=== PATIENT | female | born 1960 | race Caucasian/White ===

== ENCOUNTER 2016-12-31 15:37 | Emergency (ER) | payer OTHER ==
[2016-12-31] MEDS ORDERED: DUONEB 0.5-3 MG/3 ml Neb IH ONE ×2 (15:47→16:13)
[2016-12-31] MEDS ORDERED: ROCEPHIN 1 Gm-D5w 50 ml Bag** 1 G/50 ML IVPB IV STA (15:47)
[2016-12-31] MEDS ORDERED: ROCEPHIN 1 Gm-D5w 50 ml Bag** 1 G/50 ML IVPB IV ONE (15:59)
[2016-12-31] MEDS ORDERED: Sodium Chloride 0.9% 1000 ML 1,000 ML ONE (15:59)
[2016-12-31] MEDS ORDERED: Sodium Chloride 0.9% 1000 ML 1,000 ML IV SCH (16:00)
--- NOTE | 2016-12-31 16:08 | ERPHSYRPT ---
- History of Present Illness Time Seen by Provider: 12/31/16 15:39 Source: patient, family (daughter) Exam Limitations: no limitations Patient Subjective Stated Complaint: Pt states "I do not feel well and have not for the past two days." Triage Nursing Assessment: Pt alert and oriented X 3, skin pwd. pt ambulates without difficulty, able to speak in full sentences, voice is soft and scratchy. Physician History: not feeling well for two days; started as cold symptoms; sore throat; cough thick green; fever and chills to 101.2; N&V with coughing paroxysms only; chest discomfort with coughing as well; no travel no exposures; good appetite Timing/Duration: today (worse), yesterday (onset; ), gradual onset, worse Cough Quality/Degree: moderate, productive cough (green), sputum (green) Possible Cause: occasional episodes Modifying Factors: Improves With: coughing, exertion Associated Symptoms: fever, chills, chest pain/soreness, cough, sore throat International travel in last 2 weeks: No Allergies/Adverse Reactions: No Known Drug Allergies Allergy (Verified 12/31/16 15:51) Home Medications: Metoprolol Succinate 50 mg PO DAILY 09/22/14 [History] Simvastatin 20 mg PO DAILY 09/22/14 [History] Nitroglycerin 0.4 mg Tablet [Nitrostat 0.4 MG Tablet] 0.4 mg SL Q5MIN PRN MR X 3 PRN 09/03/15 [History] Hx Tetanus, Diphtheria Vaccination/Date Given: No Hx Influenza Vaccination/Date Given: No Hx Pneumococcal Vaccination/Date Given: No Immunizations Up to Date: Yes - Review of Systems Constitutional: Fever, Chills, Malaise Eyes: No Symptoms Ears, Nose, & Throat: Throat Pain, No Ear Pain, No Tinnitus, No Nose Congestion , No Epistaxis Respiratory: Cough, Dyspnea on Exertion (TRIVEDI), No Cyanosis, No Wheezing Cardiac: Chest Pain, Palpitations, No Syncope, No Orthopnea Abdominal/Gastrointestinal: Nausea, Vomiting (with coughing), No Abdominal Pain , No Diarrhea Genitourinary Symptoms: No Symptoms Musculoskeletal: Arthralgias, Myalgias, No Fall, No Injury Skin: No Symptoms Neurological: No Symptoms Psychological: No Symptoms Endocrine: No Symptoms Hematologic/Lymphatic: No Symptoms Immunological/Allergic: No Symptoms - Past Medical History Pertinent Past Medical History: Yes Neurological History: No Pertinent History ENT History: No Pertinent History Cardiac History: High Cholesterol, Hypertension Respiratory History: No Pertinent History Endocrine Medical History: Hypothyroidism Musculoskeletal History: Osteoarthritis GI Medical History: GERD History: No Pertinent History Psycho-Social History: No Pertinent History Female Reproductive Disorders: Cervical Cancer Other Medical History: insufficient heart valves - Past Surgical History Past Surgical History: Yes Neuro Surgical History: No Pertinent History Cardiac: Cardiac Catheterization Respiratory: No Pertinent History, Other Gastrointestinal: No Pertinent History Musculoskeletal: Orthopedic Surgery Female Surgical History: Hysterectomy, Tubal Ligation Other Surgical History: bilat bone surgery on both feet "bone spurs" - Social History Smoking Status: Never smoker Exposure to second hand smoke: Yes Alcohol Use: None Drug Use: none Patient Lives Alone: No Significant Family History: heart disease, hypertension - Female History Hx Last Menstrual Period: hystectomy Hx Now: No - Nursing Vital Signs Nursing Vital Signs: Initial Vital Signs Temperature 97.8 F 12/31/16 15:41 Pulse Rate 107 H 12/31/16 15:41 Respiratory Rate 20 12/31/16 15:41 Blood Pressure 137/70 12/31/16 15:41 O2 Sat by Pulse Oximetry 94 L 12/31/16 15:41 Pain Scale Pain Intensity 0 - Physical Exam General Appearance: moderate distress, alert, anxiety, obese Eye Exam: PERRL/EOMI, eyes nml inspection, No photophobia Ears, Nose, Throat Exam: normal ENT inspection, TMs normal, moist mucous membranes, pharyngeal erythema, No tonsillar exudate Neck Exam: normal inspection, non-tender, supple, full range of motion, No meningismus, No carotid bruit, No JVD Respiratory Exam: normal breath sounds (on left), lungs clear (on left), airway intact, diminished breath sounds (right ), rhonchi (right base), wheezing (end expiratory right), No chest tenderness, No respiratory distress, No pleural rub Cardiovascular Exam: regular rate/rhythm, normal heart sounds, normal peripheral pulses, capillary refill 2-3 sec, No murmur, No edema Gastrointestinal/Abdomen Exam: soft, normal bowel sounds, No tenderness, No guarding, No rebound, No organomegaly Pelvic Exam: deferred Rectal Exam: deferred Back Exam: normal inspection, normal range of motion, No CVA tenderness, No vertebral tenderness, No rash Extremity Exam: normal inspection, normal range of motion, No divine's sign, No pedal edema Neurologic Exam: alert, oriented x 3, cooperative, behavioral assistant II-XII nml as tested, normal mood/affect, nml cerebellar function, nml station & gait Skin Exam: normal color, warm, dry, No cyanosis Lymphatic Exam: No adenopathy SpO2 Interpretation: normal SpO2: 97 Oxygen Delivery: Room Air - Course Nursing assessment & vital signs reviewed: Yes EKG Interpreted by Me: RATE (91), Sinus Rhythm, Left Bennett Deviation, NORMAL INTERVALS, NORMAL QRS, Non-specific ST Changes (flattening of T wave and poor R wave progression V1- V5) Rhythm Strip: Rate (92), Normal Sinus Rhythm - Radiology Exams Chest X-ray Interpretation: Interpreted by me, No Pneumonia, No Pneumothorax, Nml Heart Size, Other (poor inspiration; ? density left base; some increased interstitial markings right base) Ordered Tests: Active Orders 24 hr Category Date Time Status Stockholder STAT Care 12/31/16 15:47 Active EKG-ER Only STAT Care 12/31/16 15:47 Active IV Insertion STAT Care 12/31/16 15:47 Active Pulse Oximetry (ED) STAT Care 12/31/16 15:47 Active CHEST 1 VIEW (PORTABLE) Stat Exams 12/31/16 15:47 Taken BLOOD CULTURE Stat Lab 12/31/16 15:45 Received CBC W DIFF Stat Lab 12/31/16 15:45 Completed CMP Stat Lab 12/31/16 15:45 Completed CULTURE, THROAT Stat Lab 12/31/16 15:45 Received Lactic Acid Stat Lab 12/31/16 Results PROTIME WITH INR Stat Lab 12/31/16 15:45 Completed STREP SCREEN-BETA A Stat Lab 12/31/16 15:45 Completed TROPONIN Q3H Lab 12/31/16 15:45 Completed TROPONIN Q3H Lab 12/31/16 19:00 Ordered TROPONIN Q3H Lab 12/31/16 22:00 Ordered TROPONIN Q3H Lab 01/01/17 01:00 Ordered TROPONIN Q3H Lab 01/01/17 04:00 Ordered Peak Expiratory Flow Rate ONCE RT 12/31/16 15:47 Completed Respiratory Nebulizer STAT RT 12/31/16 15:48 Completed Respiratory Nebulizer STAT RT 12/31/16 17:29 Completed Medication Summary Generic Name Dose Route Start Last Admin Trade Name Chris PRN Reason Stop Dose Admin Sodium Chloride 1,000 mls @ 100 mls/hr 12/31/16 16:00 12/31/16 16:01 Sodium Chloride 0.9% 1000 Ml IV 01/30/17 15:59 100 mls/hr .Q10H KRIS Administration Discontinued Medications Generic Name Dose Route Start Last Admin Trade Name Chris PRN Reason Stop Dose Admin Albuterol Sulfate Confirm 12/31/16 17:18 Proventil 2.5 Mg/3 Ml Neb Administered 12/31/16 17:19 Dose 2.5 mg IH .STK-MED ONE Albuterol Sulfate 2.5 mg 12/31/16 17:28 12/31/16 17:29 Proventil 2.5 Mg/3 Ml Neb IH 12/31/16 17:29 2.5 mg STAT ONE Administration Albuterol/Ipratropium 3 ml 12/31/16 15:47 12/31/16 16:15 Duoneb 0.5-3 Mg/3 Ml Neb IH 12/31/16 15:48 3 ml STAT ONE Administration Albuterol/Ipratropium Confirm 12/31/16 16:13 Duoneb 0.5-3 Mg/3 Ml Neb Administered 12/31/16 16:14 Dose 3 ml IH .STK-MED ONE Albuterol/Ipratropium 3 ml 12/31/16 17:00 Duoneb 0.5-3 Mg/3 Ml Neb IH 01/30/17 16:59 Q4HPRN PRN SHORTNESS OF BREATH/WHEEZING Ceftriaxone Sodium/Dextrose 1 g in 50 mls @ 100 mls/hr 12/31/16 15:47 16:02 Rocephin 1 Gm-D5w 50 Ml Bag IV 12/31/16 16:16 100 mls/hr STAT STA Administration Ceftriaxone Sodium/Dextrose Confirm 12/31/16 15:59 Rocephin 1 Gm-D5w 50 Ml Bag Administered 12/31/16 16:00 Dose 1 g in 50 mls @ ud IV .STK-MED ONE Lab/Rad Data: Laboratory Result Diagrams 12/31/16 15:45 12/31/16 15:45 Laboratory Results 12/31/16 12/31/1612/31/17 Range/Units Unknown 15:45 15:45 WBC (4.0-10.5) K/mm3 RBC (4.1-5.4) M/mm3 Hgb (12.0-16.0) gm/dl Hct (35-47) % MCV (78-100) fl MCH (26-32) pg MCHC (32-36) g/dl RDW (11.5-14.0) % Plt Count (150-450) K/mm3 MPV (6-9.5) fl Gran % (36.0-66.0) % Lymphocytes % (24.0-44.0) % Monocytes % (0.0-12.0) % Eosinophils % (0.00-5.0) % Basophils % (0.0-0.4) % Basophils # (0-0.4) INR (0.8-3.0) Sodium (136-145) mEq/L Potassium (3.5-5.1) mEq/L Chloride (98-107) mEq/L Carbon Dioxide (21-32) mEq/L Anion Gap (5-15) MEQ/L BUN (9-20) mg/dL Creatinine (0.55-1.30) mg/dl Estimated GFR ML/MIN Glucose (70-110) MG/DL Lactic Acid 2.7 H (0.4-2.0) Calcium (8.5-10.1) mg/dL Total Bilirubin (0.2-1.0) mg/dL AST (15-37) U/L ALT (12-78) U/L Alkaline Phosphatase (46-116) U/L Troponin I (0.000-0.056) ng/ml Serum Total Protein (6.4-8.2) gm/dL Albumin (3.4-5.0) g/dL Influenza Type A Ag NEGATIVE (NEGATIVE) Influenza Type B Ag NEGATIVE (NEGATIVE) RSV (PCR) NEGATIVE (Negative) Streptococcus Screen NEGATIVE (Negative) 12/31/16 12/31/16 12/31/16 Range/Units 15:45 15:45 15:45 WBC (4.0-10.5) K/mm3 RBC (4.1-5.4) M/mm3 Hgb (12.0-16.0) gm/dl Hct (35-47) % MCV (78-100) fl MCH (26-32) pg MCHC (32-36) g/dl RDW (11.5-14.0) % Plt Count (150-450) K/mm3 MPV (6-9.5) fl Gran % (36.0-66.0) % Lymphocytes % (24.0-44.0) % Monocytes % (0.0-12.0) % Eosinophils % (0.00-5.0) % Basophils % (0.0-0.4) % Basophils # (0-0.4) INR 1.21 (0.8-3.0) Sodium 142 (136-145) mEq/L Potassium 3.8 (3.5-5.1) mEq/L Chloride 104 (98-107) mEq/L Carbon Dioxide 28.3 (21-32) mEq/L Anion Gap 13.7 (5-15) MEQ/L BUN 14 (9-20) mg/dL Creatinine 1.44 H (0.55-1.30) mg/dl Estimated GFR 40 ML/MIN Glucose 141 H (70-110) MG/DL Lactic Acid (0.4-2.0) Calcium 9.0 (8.5-10.1) mg/dL Total Bilirubin 0.40 (0.2-1.0) mg/dL AST 9 L (15-37) U/L ALT 19 (12-78) U/L Alkaline Phosphatase 165 H (46-116) U/L Troponin I < 0.017 (0.000-0.056) ng/ml Serum Total Protein 7.9 (6.4-8.2) gm/dL Albumin 3.5 (3.4-5.0) g/dL Influenza Type A Ag (NEGATIVE) Influenza Type B Ag (NEGATIVE) RSV (PCR) (Negative) Streptococcus Screen (Negative) 12/31/16 Range/Units 15:45 WBC 8.8 (4.0-10.5) K/mm3 RBC 4.98 (4.1-5.4) M/mm3 Hgb 14.0 (12.0-16.0) gm/dl Hct 44.3 (35-47) % MCV 89.0 (78-100) fl MCH 28.1 (26-32) pg MCHC 31.6 L (32-36) g/dl RDW 14.3 H (11.5-14.0) % Plt Count 266 (150-450) K/mm3 MPV 11.9 H (6-9.5) fl Gran % 69.8 H (36.0-66.0) % Lymphocytes % 22.2 L (24.0-44.0) % Monocytes % 5.4 (0.0-12.0) % Eosinophils % 2.5 (0.00-5.0) % Basophils % 0.1 (0.0-0.4) % Basophils # 0.01 (0-0.4) INR (0.8-3.0) Sodium (136-145) mEq/L Potassium (3.5-5.1) mEq/L Chloride (98-107) mEq/L Carbon Dioxide (21-32) mEq/L Anion Gap (5-15) MEQ/L BUN (9-20) mg/dL Creatinine (0.55-1.30) mg/dl Estimated GFR ML/MIN Glucose (70-110) MG/DL Lactic Acid (0.4-2.0) Calcium (8.5-10.1) mg/dL Total Bilirubin (0.2-1.0) mg/dL AST (15-37) U/L ALT (12-78) U/L Alkaline Phosphatase (46-116) U/L Troponin I (0.000-0.056) ng/ml Serum Total Protein (6.4-8.2) gm/dL Albumin (3.4-5.0) g/dL Influenza Type A Ag (NEGATIVE) Influenza Type B Ag (NEGATIVE) RSV (PCR) (Negative) Streptococcus Screen (Negative) reviewed - Progress Progress: improved (after resp treatment), re-examined (after meds and xr) Air Movement: fair, good (after duo neb) Progress Note: 12/31/16 16:10 ekg done- old changes only; cxr pending; labs pending; will medicate; start IV; get blood cultures ; give duo neb and recheck; daughter at bedside 12/31/16 16:16 lactate 2.7; cxr poor inspiratory effort; ? density left base, mild increase in interstitial markings right base; 12/31/16 16:33 peak flow pre =180 post = 230; recheck shows clinical improvement with improved air movement and clearer breath sounds; cbc ok; daughter at bedside; labs pending; will continue to monitor and recheck; VS improved pulse ox good on RA; 12/31/16 17:02 strep neg; INR 1.21; glu 141; cr up 1.44; bun 40; lytes ok; alk phos up 165; trop ok 0.017; infu pending; patient continues to do well; getting ATBs 12/31/16 17:30 gave another neb treatment with albuterol pre 170/ post 270; much improved; lab pending for influ test; 12/31/16 17:50 patient continues to improve; will give solumedrol and release to follow up with lmd; treatment plan discussed and instructions given 12/31/16 17:51 influ tests neg Blood Culture(s) Obtained: Yes Antibiotics given: Yes Counseled pt/family regarding: lab results, diagnosis, need for follow-up, rad results - Departure Time of Disposition: 17:51 Departure Disposition: Home Clinical Impression: Acute asthmatic bronchitis Condition: Good Critical Care Time: No Referrals: LUIS FELIPE ESTRELLA [Primary Care Provider] - Instructions: Fever (Symptom) -- Adult, Bronchitis, Asthma -- Adult Additional Instructions: rest ; clear fluids; no work 48 hours; avoid smoke; recheck lmd 48-72 hours Follow-up with family doctor as directed. Call for appointment. Return if any problems. If you smoke please stop. Call or follow up with your family doctor for assistance if you need it to stop. Please wear your seatbelt when driving. Have a nice day. Thank you for allowing us to participate in your care today. :o) Dr Tu Ellis Prescriptions: Albuterol Sulfate [Albuterol Sulfate Hfa] 8.5 gm IH Q4-6HPRN PRN #1 [email or web address] PRN Reason: Cough Methylprednisolone Packet [Medrol Dosepack] 4 mg PO UD #30 packet Nizatidine [Axid] 150 mg PO BID #20 capsule Sulfamethoxazole/Trimethoprim [Bactrim Ds Tablet] 1 each PO BID #20 tablet
[2016-12-31 16:11] LABS: Lactic Acid 2.7 (0.4-2.0)
[2016-12-31 16:22] LABS: BASOPHIL % 0.1 % (0.0-0.4); Eosinophil % 2.5 % (0.00-5.0); Granulocytes % 69.8 % (36.0-66.0); Lymphocytes % 22.2 % (24.0-44.0); Mean Corpuscular Hemoglobin 28.1 pg (26-32); Mean Platelet Volume 11.9 fl (6-9.5); Monocytes % 5.4 % (0.0-12.0); Platelet Count 266 K/mm3 (150-450); Red Blood Count 4.98 M/mm3 (4.1-5.4); Red Cell Distribution Width 14.3 % (11.5-14.0); White Blood Count 8.8 K/mm3 (4.0-10.5)
[2016-12-31 16:34] LABS: INR 1.21 (0.8-3.0); PROTIME 13.7 SECONDS (9.95-12.35)
[2016-12-31 16:43] LABS: ALBUMIN 3.5 g/dL (3.4-5.0); ANION GAP 13.7 MEQ/L (5-15); BILIRUBIN,TOTAL 0.4 mg/dL (0.2-1.0); Carbon Dioxide 28.3 mEq/L (21-32); Potassium 3.8 mEq/L (3.5-5.1); Total Protein 7.9 gm/dL (6.4-8.2)
[2016-12-31] MEDS ORDERED: DUONEB 0.5-3 MG/3 ml Neb IH PRN (17:00)
[2016-12-31] MEDS ORDERED: PROVENTIL 2.5 MG/3 ML NEB IH ONE ×2 (17:18→17:28)
[2016-12-31] MEDS ORDERED: solu-MEDROL 125 MG IV ONE (17:49)
[2016-12-31] MEDS ORDERED: solu-MEDROL 125 MG ONE (17:51)
[2016-12-31 18:15] VITALS: BP 106/59; PULSE 90; O2SAT 94
--- NOTE | 2016-12-31 21:31 | XRAY ---
Indication: Cough and short of breath. Comparison: September 03, 2015. Portable chest demonstrates new subtle left base infiltrate versus atelectasis. Remaining heart and right lung normal. Bony thorax intact again with mild degenerative changes.
== END 2016-12-31 18:15 | disposition home or self-care (01) ==
LOC: ED 15:37
DX: J45.909 Unspecified asthma, uncomplicated (principal); R50.9 Fever, unspecified; J02.9 Acute pharyngitis, unspecified; R05 Cough; R07.89 Other chest pain; R00.2 Palpitations; R11.2 Nausea with vomiting, unspecified
CPT/HCPCS: 36000; 36415; 71010; 80053; 83605; 84484; 85025; 85610; 87040; 87070; 87430; 87631; 93005; 93041; 94150; 94640; 96360; 96361; 96365; 96374; 99284; J0696; J2930; A9270-GY

== ENCOUNTER 2017-04-11 11:36 | Emergency (ER) | payer OTHER ==
[2017-04-11] MEDS ORDERED: DUONEB 0.5-3 MG/3 ml Neb IH ONE ×2 (11:54→12:01)
[2017-04-11] MEDS ORDERED: DELTASONE 20 MG PO ONE (11:55)
[2017-04-11] MEDS ORDERED: TYLENOL W/ CODEINE 5 ML UD CUP PO ONE (11:56)
--- NOTE | 2017-04-11 12:00 | ERPHSYRPT ---
- History of Present Illness Time Seen by Provider: 04/11/17 11:56 Source: patient Exam Limitations: no limitations Patient Subjective Stated Complaint: pt reports a cough and shortness of breath on and off for 3 weeks been seen by PCP and treated for pneumonia and bronchitis - states she gets short of breath with minimal activity. reports soreness to ribs from coughing and fatigue. Triage Nursing Assessment: pt is aox3, pupils perrl, afebrile, resps are easy and non labored, lung sounds are clear. dry non productive cough present upon exam. skin is pink warm and dry. pain upon inspiration, shortness of breath with exertion. Physician History: mild to mod off and on cough for one week, pleuritic chest pain, +sputum, no fever, no smoking, +shortness of breath, speech fluent, ambulatory Allergies/Adverse Reactions: No Known Drug Allergies Allergy (Verified 04/11/17 11:51) Home Medications: Metoprolol Succinate 50 mg PO DAILY 09/22/14 [History] Simvastatin 20 mg PO DAILY 09/22/14 [History] Nitroglycerin 0.4 mg Tablet [Nitrostat 0.4 MG Tablet] 0.4 mg SL Q5MIN PRN MR X 3 PRN 09/03/15 [History] Hx Tetanus, Diphtheria Vaccination/Date Given: Yes Hx Influenza Vaccination/Date Given: No Hx Pneumococcal Vaccination/Date Given: No Immunizations Up to Date: Yes - Review of Systems Constitutional: No Fever Eyes: No Symptoms Ears, Nose, & Throat: Nose Congestion, No Throat Swelling, No Hoarse, No Stridor Respiratory: Cough, Dyspnea, Wheezing, No Cyanosis, No Stridor Cardiac: Chest Pain Abdominal/Gastrointestinal: No Symptoms Musculoskeletal: No Symptoms Skin: No Symptoms Neurological: No Dizziness - Past Medical History Pertinent Past Medical History: Yes Neurological History: No Pertinent History ENT History: No Pertinent History Cardiac History: High Cholesterol, Hypertension Respiratory History: No Pertinent History Endocrine Medical History: Hypothyroidism Musculoskeletal History: Osteoarthritis GI Medical History: GERD History: No Pertinent History Psycho-Social History: No Pertinent History Female Reproductive Disorders: Cervical Cancer Other Medical History: insufficient heart valves - Past Surgical History Past Surgical History: Yes Neuro Surgical History: No Pertinent History Cardiac: Cardiac Catheterization Respiratory: No Pertinent History, Other Gastrointestinal: No Pertinent History Musculoskeletal: Orthopedic Surgery Female Surgical History: Hysterectomy, Tubal Ligation Other Surgical History: bilat bone surgery on both feet "bone spurs" - Social History Smoking Status: Never smoker Exposure to second hand smoke: Yes Alcohol Use: None Drug Use: none Patient Lives Alone: No Significant Family History: heart disease, hypertension - Female History Hx Last Menstrual Period: hyst Hx Now: No - Nursing Vital Signs Nursing Vital Signs: Initial Vital Signs Temperature 97.7 F 04/11/17 11:43 Pulse Rate 70 04/11/17 11:43 Respiratory Rate 20 04/11/17 11:43 Blood Pressure 153/100 04/11/17 11:43 O2 Sat by Pulse Oximetry 97 04/11/17 11:43 Pain Scale Pain Intensity 0 - Physical Exam General Appearance: no apparent distress Eye Exam: PERRL/EOMI Ears, Nose, Throat Exam: moist mucous membranes Neck Exam: normal inspection Respiratory Exam: wheezing, No respiratory distress, No accessory muscle use Cardiovascular Exam: regular rate/rhythm Gastrointestinal/Abdomen Exam: soft, No tenderness Extremity Exam: normal inspection Neurologic Exam: alert, oriented x 3, cooperative Skin Exam: normal color, warm, dry SpO2 Interpretation: normal SpO2: 97 Oxygen Delivery: Room Air - Course Nursing assessment & vital signs reviewed: Yes - Radiology Exams Chest X-ray Interpretation: Discussed w/ radiologist, Negative Ordered Tests: Active Orders 24 hr Category Date Time Status CHEST 2 VIEWS (PA AND LAT) Stat Exams 04/11/17 11:54 Completed Respiratory Nebulizer STAT RT 04/11/17 11:55 Active Medication Summary Discontinued Medications Generic Name Dose Route Start Last Admin Trade Name Freq PRN Reason Stop Dose Admin Acetaminophen/Codeine Phosphate 10 ml 04/11/17 11:56 04/11/17 12:12 Tylenol W/ Codeine 5 Ml Ud Cup PO 04/11/17 11:57 10 ml STAT ONE Administration Acetaminophen/Codeine Phosphate Confirm 04/11/17 12:10 Tylenol W/ Codeine 5 Ml Ud Cup Administered 04/11/17 12:11 Dose 10 ml .ROUTE .STK-MED ONE Albuterol/Ipratropium 3 ml 04/11/17 11:54 04/11/17 12:02 Duoneb 0.5-3 Mg/3 Ml Neb IH 04/11/17 11:55 3 ml STAT ONE Administration Albuterol/Ipratropium Confirm 04/11/17 12:01 Duoneb 0.5-3 Mg/3 Ml Neb Administered 04/11/17 12:02 Dose 3 ml IH .STK-MED ONE Prednisone 60 mg 04/11/17 11:55 04/11/17 12:13 Deltasone 20 Mg PO 04/11/17 11:56 60 mg STAT ONE Administration Prednisone Confirm 04/11/17 12:10 Deltasone 20 Mg Administered 04/11/17 12:11 Dose 60 mg .ROUTE .STK-MED ONE - Progress Progress: improved Air Movement: good Progress Note: 04/11/17 12:58 see your doctor, codeine warnings given, return if worse, zpak, medrol, proventil inhaler Antibiotics given: Yes Discussed with : Carolina Estrella Will see patient in: office Counseled pt/family regarding: diagnosis, need for follow-up, rad results - Departure Time of Disposition: 12:59 Departure Disposition: Home Clinical Impression: Bronchitis Condition: Stable Critical Care Time: No Referrals: LUIS FELIPE ESTRELLA [Primary Care Provider] - Instructions: Cough -- Adult Additional Instructions: see your doctor, return if worse, tylenol w/ codeine, zpak, proventil inhaler, medrol
[2017-04-11] MEDS ORDERED: DELTASONE 20 MG ONE (12:10)
[2017-04-11] MEDS ORDERED: TYLENOL W/ CODEINE 5 ML UD CUP ONE (12:10)
--- NOTE | 2017-04-11 12:39 | XRAY ---
Indication: Cough. Comparison: January 04, 2017. PA/lateral chest again demonstrates normal heart and lungs. Bony thorax intact again with mild degenerative changes. No new/acute findings.
[2017-04-11 13:15] VITALS: BP 112/77; PULSE 76; O2SAT 96
== END 2017-04-11 13:30 | disposition home or self-care (01) ==
LOC: ED 11:36
DX: J40 Bronchitis, not specified as acute or chronic (principal); R05 Cough; Z79.899 Other long term (current) drug therapy
CPT/HCPCS: 71020; 94640; 99283; 99284; A9270-GY; J7506

== ENCOUNTER 2018-10-31 13:59 | Day surgery (SDC) | payer OTHER ==
[2018-10-31] MEDS ORDERED: Sodium Chloride 0.9(Preservative Free) 10 ML IJ ONE (14:00)
[2018-10-31] MEDS ORDERED: Depo-Medrol 40 MG/ML IM ONE (14:00)
[2018-10-31] MEDS ORDERED: Lactated Ringers 1,000 ML IV ONE (14:34)
[2018-10-31] MEDS ORDERED: DIPRIVAN 200 MG/20 ML IV ONE (14:41)
[2018-10-31] MEDS ORDERED: Ketamine HCl 50 MG/ML ONE (14:41)
--- NOTE | 2018-10-31 16:42 | XRAY ---
Indication: Right L4-L5 transforaminal SEBLE. Intraoperative fluoroscopy was provided for 19 seconds. 2 digital spot images submitted for interpretation demonstrates posterior needle tips projecting over the expected right L4 nerve root. Small amount of contrast injected for needle tip placement. Correlate with intraoperative findings/report.
--- NOTE | 2018-10-31 16:57 | XRAY ---
19 seconds of fluoroscopy was used in surgery for right L4-L5 transforaminal SEBLE.
== END 2018-10-31 15:08 | disposition home or self-care (01) ==
LOC: SDC-PAIN 13:59
PROVIDERS: ATTEND Psychiatry & Neurology Pain Medicine
DX: M54.16 Radiculopathy, lumbar region (principal); E78.5 Hyperlipidemia, unspecified; I25.10 Atherosclerotic heart disease of native coronary artery without angina pectoris; I10 Essential (primary) hypertension; K21.9 Gastro-esophageal reflux disease without esophagitis; E03.9 Hypothyroidism, unspecified
CPT/HCPCS: 64483; 72020; 77003; J1030; J2704; Q9966

== ENCOUNTER 2020-03-19 05:32 | Emergency (ER) | payer OTHER ==
--- NOTE | 2020-03-19 05:35 | ERPHSYRPT ---
- History of Present Illness Time Seen by Provider: 03/19/20 05:35 Historian: patient Exam Limitations: clinical condition Physician History: This is a morbidly obese 60-year-old female who has a history of hypertension, gastroesophageal reflux disease, and hypothyroidism and presents with sudden onset of right upper quadrant/epigastric abdominal pain that is described as sharp with radiation into her right back. Patient's prior abdominal surgeries include a hysterectomy and bilateral tubal ligation. Patient does see Dr. Crews in a pain clinic. She also sees a uniform room attendant (Dr. Ceballos) valve insufficiencies. Patient states she did have a myocardial infarction at age [age] years old. Patient states that she denies shortness of breath at this time. She is had no cough. She has no flulike symptoms. She has had no nausea vomiting or diarrhea. Patient states that she is never had this kind of pain before. Patient ate steak, beans, and lettuce last night for dinner. Patient did state that in the last 2 to 3 days she has felt very fatigued. Timing/Duration: today Activities at Onset: none Quality: sharpness, stabbing Abdominal Pain Onset Location: RUQ, epigastric Pain Radiation: back (On right side) Severity of Pain-Max: moderate Severity of Pain-Current: moderate Associated Symptoms: weakness, No chest pain, No diaphoresis, No diarrhea, No fever/chills Previous symptoms: no prior history Allergies/Adverse Reactions: No Known Drug Allergies Allergy (Verified 03/19/20 05:55) Home Medications: Metoprolol Succinate 50 mg PO DAILY 09/22/14 [History] Simvastatin 20 mg PO DAILY 09/22/14 [History] Nitroglycerin 0.4 mg Tablet [Nitrostat 0.4 MG Tablet] 0.4 mg SL Q5MIN PRN MR X 3 PRN 09/03/15 [History] Hx Tetanus, Diphtheria Vaccination/Date Given: Yes Hx Influenza Vaccination/Date Given: No Hx Pneumococcal Vaccination/Date Given: No Travel Risk - International Travel Have you traveled outside of the country in past 3 weeks: No - Coronavirus Screening Are you exhibiting any of the following symptoms?: No Close contact with a COVID-19 positive Pt in past 14-21 Days: No - Review of Systems Constitutional: Weakness Eyes: No Symptoms Ears, Nose, & Throat: No Symptoms Respiratory: No Symptoms Cardiac: No Symptoms Abdominal/Gastrointestinal: Abdominal Pain, No Nausea, No Vomiting, No Diarrhea Genitourinary Symptoms: No Symptoms Musculoskeletal: Back Pain (Right upper scapular region) Skin: No Symptoms Neurological: No Symptoms Psychological: No Symptoms Endocrine: No Symptoms Hematologic/Lymphatic: No Symptoms Immunological/Allergic: No Symptoms All Other Systems: Reviewed and Negative - Past Medical History Pertinent Past Medical History: Yes Neurological History: No Pertinent History ENT History: No Pertinent History Cardiac History: High Cholesterol, Hypertension Respiratory History: No Pertinent History Endocrine Medical History: Hypothyroidism Musculoskeletal History: Osteoarthritis GI Medical History: GERD History: No Pertinent History Psycho-Social History: No Pertinent History Female Reproductive Disorders: Cervical Cancer Other Medical History: insufficient heart valves - Past Surgical History Past Surgical History: Yes Neuro Surgical History: No Pertinent History Cardiac: Cardiac Catheterization Respiratory: No Pertinent History, Other Gastrointestinal: No Pertinent History Musculoskeletal: Orthopedic Surgery Female Surgical History: Hysterectomy, Tubal Ligation Other Surgical History: bilat bone surgery on both feet "bone spurs" - Social History Smoking Status: Never smoker Exposure to second hand smoke: Yes Alcohol Use: None Drug Use: none Patient Lives Alone: No Significant Family History: heart disease, hypertension - Nursing Vital Signs Nursing Vital Signs: Initial Vital Signs Temperature 97.6 F 03/19/20 05:56 Pulse Rate 68 03/19/20 05:56 Respiratory Rate 24 03/19/20 05:56 Blood Pressure 144/86 03/19/20 05:56 O2 Sat by Pulse Oximetry 99 03/19/20 05:56 Pain Scale Pain Intensity 8 - Physical Exam General Appearance: mild distress, alert, anxiety, obese Eye Exam: PERRL/EOMI, eyes nml inspection Ears, Nose, Throat Exam: normal ENT inspection, moist mucous membranes Neck Exam: normal inspection, non-tender, supple, full range of motion Respiratory Exam: normal breath sounds, lungs clear, airway intact, No chest tenderness, No respiratory distress Cardiovascular Exam: regular rate/rhythm, normal heart sounds, normal peripheral pulses Gastrointestinal/Abdomen Exam: soft, normal bowel sounds, tenderness (Right upper quadrant and epigastric region), guarding, No rebound Pelvic Exam: not done Rectal Exam: not done Back Exam: normal inspection, normal range of motion, No CVA tenderness, No vertebral tenderness Extremity Exam: normal inspection, normal range of motion, pelvis stable Neurologic Exam: alert, oriented x 3, cooperative, 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 There are no changes on this EKG compared to an EKG performed on 02/08/2018) Ordered Tests: Active Orders 24 hr Category Date Time Status EKG-ER Only STAT Care 03/19/20 05:40 Active IV Insertion STAT Care 03/19/20 05:37 Active ABDOMEN AND PELVIS W CONTRAST [CT] Stat Exams 03/19/20 05:37 Completed CHEST WITH CONTRAST [CT] Stat Exams 03/19/20 06:50 Completed AMYLASE Routine Lab 03/19/20 06:25 Completed CBC W DIFF Stat Lab 03/19/20 06:07 Completed CMP Routine Lab 03/19/20 06:25 Completed D-DIMER QUANTITATIVE Stat Lab 03/19/20 05:38 Completed LIPASE Routine Lab 03/19/20 06:25 Completed Lactic Acid Stat Lab 03/19/20 06:23 Completed Manual Differential NC Stat Lab 03/19/20 06:07 Completed TROPONIN Q3H Lab 03/19/20 06:25 Completed UA W/RFX UR CULTURE Stat Lab 03/19/20 08:40 Completed Medication Summary Discontinued Medications Generic Name Dose Route Start Last Admin Trade Name Chris PRN Reason Stop Dose Admin Hydromorphone HCl 1 mg 03/19/20 05:37 03/19/20 06:01 Hydromorphone 1 Mg/Ml Injection IV 03/19/20 05:38 1 mg STAT ONE Administration Hydromorphone HCl Confirm 03/19/20 05:59 Hydromorphone 1 Mg/Ml Injection Administered 03/19/20 06:00 Dose 1 mg .ROUTE .STK-MED ONE Hydromorphone HCl 0.5 mg 03/19/20 09:13 Hydromorphone 1 Mg/Ml Injection IV 03/19/20 09:14 STAT ONE Sodium Chloride 1,000 mls @ 999 mls/hr 03/19/20 05:37 03/19/20 06:59 Sodium Chloride 0.9% 1000 Ml IV 03/19/20 06:37 Infused .Q1H1M STA Infusion Sodium Chloride Confirm 03/19/20 05:59 Sodium Chloride 0.9% 1000 Ml Administered 03/19/20 06:00 Dose 1,000 mls @ ud .ROUTE .STK-MED ONE Ondansetron HCl 4 mg 03/19/20 05:37 03/19/20 06:01 Zofran 4 Mg/2 Ml Vial IV 03/19/20 05:38 4 mg STAT ONE Administration Ondansetron HCl Confirm 03/19/20 05:59 Zofran 4 Mg/2 Ml Vial Administered 03/19/20 06:00 Dose 4 mg .ROUTE .STK-MED ONE Lab/Rad Data: Laboratory Result Diagrams 03/19/20 06:07 03/19/20 06:25 Laboratory Results 03/19/20 03/19/20 03/19/20 Range/Units 08:40 06:25 06:23 WBC (4.0-10.5) K/mm3 RBC (4.1-5.4) M/mm3 Hgb (12.0-16.0) gm/dl Hct (35-47) % MCV (78-100) fl MCH (26-32) pg MCHC (32-36) g/dl RDW (11.5-14.0) % Plt Count (150-450) K/mm3 MPV (7.5-11.0) fl Segmented Neutrophils (36.0-66.0) % Lymphocytes (Manual) (24-44) % Monocytes (Manual) (0.0-12.0) % Eosinophils (Manual) (0.00-3.0) % Platelet Estimate (NORMAL) RBC Morphology D-Dimer (215-500) ng/mL Sodium 135 L (137-145) mmol/L Potassium 3.7 (3.5-5.1) mmol/L Chloride 109 H (98-107) mmol/L Carbon Dioxide 21 L (22-30) mmol/L Anion Gap 9.4 (5-15) MEQ/L BUN 16 (7-17) mg/dL Creatinine 0.63 (0.52-1.04) mg/dL Estimated GFR > 60.0 ML/MIN Glucose 150 H (74-106) mg/dL Lactic Acid 1.0 (0.4-2.0) Calcium 8.5 (8.4-10.2) mg/dL Total Bilirubin 0.40 (0.2-1.3) mg/dL AST 31 (14-36) U/L ALT 26 (0-35) U/L Alkaline Phosphatase 149 H (38-126) U/L Troponin I < 0.012 (0.000-0.034) ng/mL Serum Total Protein 6.6 (6.3-8.2) g/dL Albumin 3.5 (3.5-5.0) g/dL Amylase 59 (30-110) U/L Lipase 38 (23-300) U/L Urine Color YELLOW (YELLOW) Urine Appearance CLOUDY (CLEAR) Urine pH 5.0 (5-6) Ur Specific [place] 1.024 (1.005-1.025) Urine Protein NEGATIVE (Negative) Urine Ketones TRACE (NEGATIVE) Urine Blood SMALL (0-5) Joni/ul Urine Nitrite NEGATIVE (NEGATIVE) Urine Bilirubin NEGATIVE (NEGATIVE) Urine Urobilinogen NEGATIVE (0-1) mg/dL Ur Leukocyte Esterase NEGATIVE (NEGATIVE) Urine WBC (Auto) 0-2 (0-5) /HPF Urine RBC (Auto) 0-2 (0-2) /HPF U Hyaline Cast (Auto) 3-5 (0-2) /LPF U Epithel Cells (Auto) MODERATE (FEW) /HPF Urine Bacteria (Auto) RARE (NEGATIVE) /HPF Urine Mucus (Auto) SLIGHT (NEGATIVE) /HPF Urine Culture Reflexed NO (NO) Urine Glucose NEGATIVE (NEGATIVE) mg/dL 03/19/20 03/19/20 Range/Units 06:07 05:38 WBC 9.6 (4.0-10.5) K/mm3 RBC 4.71 (4.1-5.4) M/mm3 Hgb 13.1 (12.0-16.0) gm/dl Hct 42.5 (35-47) % MCV 90.2 (78-100) fl MCH 27.8 (26-32) pg MCHC 30.8 L (32-36) g/dl RDW 13.5 (11.5-14.0) % Plt Count 102 L (150-450) K/mm3 MPV 12.1 H (7.5-11.0) fl Segmented Neutrophils 75 H (36.0-66.0) % Lymphocytes (Manual) 18 L (24-44) % Monocytes (Manual) 6 (0.0-12.0) % Eosinophils (Manual) 1 (0.00-3.0) % Platelet Estimate NORMAL (NORMAL) RBC Morphology NORMAL D-Dimer 901 H* (215-500) ng/mL Sodium (137-145) mmol/L Potassium (3.5-5.1) mmol/L Chloride (98-107) mmol/L Carbon Dioxide (22-30) mmol/L Anion Gap (5-15) MEQ/L BUN (7-17) mg/dL Creatinine (0.52-1.04) mg/dL Estimated GFR ML/MIN Glucose (74-106) mg/dL Lactic Acid (0.4-2.0) Calcium (8.4-10.2) mg/dL Total Bilirubin (0.2-1.3) mg/dL AST (14-36) U/L ALT (0-35) U/L Alkaline Phosphatase (38-126) U/L Troponin I (0.000-0.034) ng/mL Serum Total Protein (6.3-8.2) g/dL Albumin (3.5-5.0) g/dL Amylase (30-110) U/L Lipase (23-300) U/L Urine Color (YELLOW) Urine Appearance (CLEAR) Urine pH (5-6) Ur Specific [place] (1.005-1.025) Urine Protein (Negative) Urine Ketones (NEGATIVE) Urine Blood (0-5) Joni/ul Urine Nitrite (NEGATIVE) Urine Bilirubin (NEGATIVE) Urine Urobilinogen (0-1) mg/dL Ur Leukocyte Esterase (NEGATIVE) Urine WBC (Auto) (0-5) /HPF Urine RBC (Auto) (0-2) /HPF U Hyaline Cast (Auto) (0-2) /LPF U Epithel Cells (Auto) (FEW) /HPF Urine Bacteria (Auto) (NEGATIVE) /HPF Urine Mucus (Auto) (NEGATIVE) /HPF Urine Culture Reflexed (NO) Urine Glucose (NEGATIVE) mg/dL - Progress Progress: improved, pain not gone completely, re-examined Progress Note: 03/19/20 08:53 CAT scan of the chest with contrast shows no evidence of pulmonary emboli. There are no acute cardiopulmonary processes. CAT scan of the abdomen with contrast reveals a distended gallbladder with a tiny stone present. No other acute intra-abdominal abnormalities appreciated. Counseled pt/family regarding: lab results, diagnosis, need for follow-up, rad results - Departure Departure Disposition: Home Clinical Impression: Right upper quadrant abdominal pain, Cholelithiasis Condition: Stable Critical Care Time: No Referrals: LUIS FELIPE ESTRELLA [Primary Care Provider] - Additional Instructions: Avoid fatty greasy spicy foods. Call your primary care doctor today to make arrangements for a follow-up appointment as an outpatient gallbladder ultrasound and a HIDA scan if indicated. Prescriptions: Hydrocodone/APAP 5/325 [[place] 5/325 mg] 1 each PO Q8H PRN PRN #8 tablet MDD 3 PRN Reason: Pain Ondansetron HCl [Zofran] 4 mg PO TID PRN #10 tablet PRN Reason: Nausea/Vomiting
[2020-03-19] MEDS ORDERED: Hydromorphone 1 mg/ml Injection IV ONE ×2 (05:37→09:13)
[2020-03-19] MEDS ORDERED: Sodium Chloride 0.9% 1000 ML 1,000 ML IV STA (05:37)
[2020-03-19] MEDS ORDERED: Zofran 4 MG/2 ML VIAL IV ONE (05:37)
[2020-03-19] MEDS ORDERED: Zofran 4 MG/2 ML VIAL ONE (05:59)
[2020-03-19] MEDS ORDERED: Sodium Chloride 0.9% 1000 ML 1,000 ML ONE (05:59)
[2020-03-19] MEDS ORDERED: Hydromorphone 1 mg/ml Injection ONE ×2 (05:59→09:16)
[2020-03-19 06:21] LABS: Hematocrit 42.5 % (35-47); Hemoglobin 13.1 gm/dl (12.0-16.0); Mean Cell Volume 90.2 fl (78-100); Mean Corpuscular Hemoglobin 27.8 pg (26-32); Mean Corpuscular Hgb Concent. 30.8 g/dl (32-36); Mean Platelet Volume 12.1 fl (7.5-11.0); Platelet Count 102 K/mm3 (150-450); Red Blood Count 4.71 M/mm3 (4.1-5.4); Red Cell Distribution Width 13.5 % (11.5-14.0); White Blood Count 9.6 K/mm3 (4.0-10.5)
[2020-03-19 06:56] LABS: ALBUMIN 3.5 g/dL (3.5-5.0); ALKALINE PHOSPHATASE 149 U/L (38-126); AMYLASE 59 U/L (30-110); ANION GAP 9.4 MEQ/L (5-15); BLOOD UREA NITROGEN 16 mg/dL (7-17); CHLORIDE 109 mmol/L (98-107); Calcium 8.5 mg/dL (8.4-10.2); Carbon Dioxide 21 mmol/L (22-30); Creatinine 1 0.63 mg/dL (0.52-1.04); EST GLOMERULAR FILTRATION RATE > 60.0 ML/MIN; Glucose 150 mg/dL (74-106); LIPASE 38 U/L (23-300); Potassium 3.7 mmol/L (3.5-5.1); SGOT/AST 31 U/L (14-36); SGPT/ALT 26 U/L (0-35); SODIUM 135 mmol/L (137-145); TROPONIN < 0.012 ng/mL (0.000-0.034); Total Protein 6.6 g/dL (6.3-8.2)
[2020-03-19 08:24] LABS: Eosinophil 1 % (0.00-3.0); Lymphocytes 18 % (24-44); Monocyte 6 % (0.0-12.0); Neutrophils 75 % (36.0-66.0); Platelet Estimate NORMAL (NORMAL); Total Cells Counted 100
--- NOTE | 2020-03-19 08:40 | XRAY ---
Indication: Chest pain. Elevated d-dimer. Multiple contiguous axial images obtained through the chest using 80 cc Isovue 370 contrast and PE protocol. Comparison: September 04, 2015. There is satisfactory opacification of the pulmonary arteries to include the lobar and segmental branches. Again no pulmonary embolus. Heart is not enlarged. Aorta is normal in course and caliber. No pathologic mediastinal/hilar lymphadenopathy. New small hiatal hernia. Lungs inflated with minimal bilateral dependent atelectasis. No suspicious pulmonary mass, infiltrate, consolidation, or effusion. Bony thorax intact again with mild degenerative changes throughout the spine. CT abdomen/pelvis report separately. Impression: Continued negative for pulmonary embolus. New small hiatal hernia. No new or acute cardiopulmonary abnormalities.
--- NOTE | 2020-03-19 08:41 | XRAY ---
Indication: Right upper quadrant/epigastric pain. Multiple contiguous axial images obtained through the abdomen and pelvis using 80 cc Isovue 370 contrast only. Comparison: None CT chest reported separately. Noncontrasted stomach and bowel loops appear nonobstructed. Normal appendix. There has been hysterectomy. No free fluid/air. Gallbladder moderately distended with 4-5 mm stone in the neck. Remaining liver, pancreas, spleen, adrenal glands, kidneys, ureters, bladder, and aorta appear unremarkable. A few subcentimeter periaortic nodes none pathologically enlarged. Osseous structures intact with minimal/mild degenerative changes throughout the spine and both hips. No ventral or inguinal hernias. Impression: 1. Distended gallbladder with tiny stone. Gallbladder sonogram may yield further information if clinically warranted. 2. Remaining CT abdomen/pelvis with contrast exam is negative.
[2020-03-19 09:07] LABS: Appearance CLOUDY (CLEAR); Bacteria RARE /HPF (NEGATIVE); Bilirubin NEGATIVE (NEGATIVE); Blood SMALL Ery/ul (0-5); Epithelial Cells MODERATE /HPF (FEW); Glucose NEGATIVE (NEGATIVE); Ketones TRACE (NEGATIVE); Leukocyte Esterase NEGATIVE (NEGATIVE); Mucus SLIGHT /HPF (NEGATIVE); Nitrite NEGATIVE (NEGATIVE); Protein,Urine Dip NEGATIVE (Negative); RBC 0-2 /HPF (0-2); Specific Gravity 1.024 (1.005-1.025); Urobilinogen NEGATIVE mg/dL (0-1); WBC 0-2 /HPF (0-5)
[2020-03-19 09:52] VITALS: BP 128/69; PULSE 78; O2SAT 98
== END 2020-03-19 09:52 | disposition home or self-care (01) ==
LOC: ED 05:32
DX: R10.11 Right upper quadrant pain (principal); R10.13 Epigastric pain; M54.9 Dorsalgia, unspecified; I10 Essential (primary) hypertension; K80.20 Calculus of gallbladder without cholecystitis without obstruction; E78.00 Pure hypercholesterolemia, unspecified; Z79.899 Other long term (current) drug therapy; I25.2 Old myocardial infarction
CPT/HCPCS: 36000; 36415; 71260; 74177; 80053; 81001; 82150; 83605; 83690; 84484; 85025; 85379; 93005; 96360; 96374; 96375; 96376; 99284; J1170; J2405

== ENCOUNTER 2022-02-08 21:27 | Emergency (ER) | payer OTHER ==
[2022-02-08 22:44] LABS: Absolute Neutrophil Ct (ANC) 7.01 x10^3/uL (1.4-6.9); Basophil (Absolute #) 0.02 x10^3/uL (0-0.4); Eosinophil % 0.1 % (0.00-5.0); Eosinophil (Absolute #) 0.01 x10^3/uL (0-0.5); Hematocrit 44.4 % (35-47); Hemoglobin 13.7 g/dL (12.0-16.0); Lymphocyte (Absolute #) 1.38 x10^3/uL (1.0-4.6); Lymphocytes % 15.7 % (24.0-44.0); Mean Corpuscular Hemoglobin 28.1 pg (26-32); Mean Corpuscular Hgb Concent. 30.9 g/dL (32-36); Mean Platelet Volume 11.4 fL (7.5-11.0); Monocyte (Absolute #) 0.35 x10^3/uL (0.0-1.3); Neutrophil % 79.7 % (36.0-66.0); Platelet Count 229 x10^3/uL (150-450); Red Blood Count 4.88 x10^6/uL (4.1-5.4); Red Cell Distribution Width 13.9 % (11.5-14.0); White Blood Count 8.8 x10^3/uL (4.0-10.5)
[2022-02-08 22:51] LABS: Appearance CLEAR (CLEAR)
[2022-02-08 22:53] LABS: Bilirubin NEGATIVE (NEGATIVE); Dipstick done @ ? MAIN LAB; Glucose NEGATIVE (NEGATIVE); Ketones NEGATIVE (NEGATIVE); Nitrite NEGATIVE (NEGATIVE); Protein,Urine Dip TRACE (Negative); RBC NEGATIVE Ery/ul (0-5); Specific Gravity >=1.030 (1.005-1.025); Urobilinogen 0.2 mg/dL (0-1)
[2022-02-08 22:57] LABS: Mucus SLIGHT /HPF (NEGATIVE); Urine Cultured Indicated? NO; WBC 0-2 /HPF (0-5)
[2022-02-08 23:04] LABS: INR 1.14 (0.8-3.0); PROTIME 11.9 SECONDS (9.4-12.5); PTT 26.3 SECONDS (25.1-36.5)
--- NOTE | 2022-02-08 23:06 | ERPHSYRPT ---
- History of Present Illness Source: patient, other (Daughter) Exam Limitations: other (Poor historian) Patient Subjective Stated Complaint: Started new medicine gabapentin ER 600mg 02/07 morning and since then daughter stated patient has been falling asleep while talking. Also vomiting, dizzy, shaky, and hurting all over. Also has new medicine pramipexole 1mg qhs. Triage Nursing Assessment: Pt brought to room in wheelchair. Skin color pale. Pt has unsteady gait d/t dizziness. O2 sat 84% on RA. Placed on 2L NC O2 and O2 sat up to 95%. Physician History: 61 yo Wf w N/V/dyspnea/lethargy/dizziness x 2 days. Symptoms began after starting Gabapentin/Pramipexole yesterday for restless leg syndrome. She denies any hematemesis/abdominal pain/fever/focal weakness. Pt denies cough/coryza/PND. She states that she has been having some intermittant chest pain but is pain free at present. Timing/Duration: day(s) (2 days) Severity: moderate Character of Deficits: new weakness Baseline/Normal Cognition: alert oriented x 3 Current Cognition: alert oriented x 3 Allergies/Adverse Reactions: No Known Drug Allergies Allergy (Verified 02/08/22 21:57) Home Medications: Nitroglycerin 0.4 mg Tablet [Nitrostat 0.4 MG Tablet] 0.4 mg SL Q5MIN PRN MR X 3 PRN 09/03/15 [History] Albuterol Sulfate [Albuterol Sulfate Hfa] 2 puff IH Q6H PRN 02/08/22 [History] Budesonide/Formoterol Fumarate [Budesonide-Formoterol 160-4.5] 1 unit IH DAILY 02/08/22 [History] Calcium Carb/Vitamin D3/Vit K1 [Calcium + D Soft Chewable Tab] 1 tab PO BID 02/08/22 [History] Gabapentin [Gralise] 600 mg PO Q12H 02/08/22 [History] Levothyroxine Sodium 150 Mcg [Synthroid 150 Mcg] 150 mcg PO DAILY 02/08/22 [History] Meclizine HCl 25 mg [Antivert 25 mg] 25 mg PO TID PRN PRN 02/08/22 [History] Pramipexole Di-HCl [Pramipexole Dihydrochloride] 1 mg PO QHS 02/08/22 [History] Ranolazine [Ranolazine ER] 500 mg PO BID 02/08/22 [History] Sertraline HCl 50 mg [Zoloft 50 mg Tablet] 50 mg PO DAILY 02/08/22 [History] Simvastatin 10 mg [Zocor 10MG] 10 mg PO DAILY 02/08/22 [History] Tolterodine Tartrate 2 mg PO QHS 02/08/22 [History] Tramadol HCl 50 mg [Ultram 50 mg] 25 - 50 mg PO Q4-6HPRN PRN MDD 150mg 02/08/22 [History] Tramadol HCl [Tramadol HCl ER] 200 mg PO DAILY 02/08/22 [History] clonazePAM 0.5 mg PO BID PRN PRN 02/08/22 [History] Hx Tetanus, Diphtheria Vaccination/Date Given: No Hx Influenza Vaccination/Date Given: No Hx Pneumococcal Vaccination/Date Given: No Travel Risk - International Travel Have you traveled outside of the country in past 3 weeks: No - Coronavirus Screening Are you exhibiting any of the following symptoms?: Yes Symptoms: Vomiting/Diarrhea, Headaches/Body Aches/Fatigue Close contact with a COVID-19 positive Pt in past 14-21 Days: No - Vaccine Status Have you recieved a Covid-19 vaccination: No - Past Medical History Pertinent Past Medical History: Yes Neurological History: No Pertinent History ENT History: No Pertinent History Cardiac History: Congenital Heart Disease, Coronary Artery Disease, Myocardial Infarction ([place]) Respiratory History: Asthma Endocrine Medical History: Hypothyroidism Musculoskeletal History: Osteoarthritis GI Medical History: GERD History: No Pertinent History Psycho-Social History: No Pertinent History Female Reproductive Disorders: Cervical Cancer Other Medical History: . - Past Surgical History Past Surgical History: Yes Neuro Surgical History: No Pertinent History Cardiac: Cardiac Catheterization Respiratory: No Pertinent History, Other Gastrointestinal: Cholecystectomy Genitourinary: No Pertinent History Musculoskeletal: Orthopedic Surgery Female Surgical History: Hysterectomy, Tubal Ligation Other Surgical History: bilat bone surgery on both feet "bone spurs" - Social History Smoking Status: Never smoker Exposure to second hand smoke: Yes Alcohol Use: None Drug Use: none Patient Lives Alone: No Significant Family History: heart disease, hypertension - Nursing Vital Signs Nursing Vital Signs: Initial Vital Signs Temperature 96.8 F 02/08/22 21:57 Pulse Rate 85 02/08/22 21:57 Respiratory Rate 20 02/08/22 21:57 Blood Pressure 125/87 02/08/22 21:57 O2 Sat by Pulse Oximetry 84 L 02/08/22 21:57 Pain Scale Pain Intensity 0 - Physical Exam SpO2: 84 - Course Nursing assessment & vital signs reviewed: Yes EKG Interpreted by Me: RATE (NSR/Rate 75/Normal QT-QTc/Qwave 3-AVF/anterior Twave abnormality) - CT Exams Head CT Interpretation: Tele-radiologist Report (CT head neg) Chest CT Interpretation: Tele-radiologist Report (CTA chest No PE/NAD) Abdomen/Pelvis CT Interpretation: Tele-radiologist Report (Mild thickening of ascending colon) Ordered Tests: Active Orders 24 hr Category Date Time Status EKG-ER Only STAT Care 02/08/22 22:56 Completed ABDOMEN AND PELVIS W CONTRAST [CT] Stat Exams 02/09/22 01:26 Taken CHEST 1 VIEW (PORTABLE) Stat Exams 02/08/22 22:12 Taken CHEST WITH CONTRAST [CT] Stat Exams 02/09/22 01:23 Taken HEAD WITHOUT CONTRAST [CT] Stat Exams 02/08/22 22:56 Taken CBC W DIFF Stat Lab 02/08/22 22:35 Completed CMP Stat Lab 02/08/22 22:35 Completed D-DIMER QUANTITATIVE Stat Lab 02/09/22 00:00 Completed NT PRO BNP Stat Lab 02/08/22 22:35 Completed PROTIME WITH INR Stat Lab 02/08/22 22:35 Completed PTT Stat Lab 02/08/22 22:35 Completed T4 (Thyroxine) Stat Lab 02/09/22 00:00 Completed TROPONIN Q4H Lab 02/08/22 22:35 Completed TROPONIN Q4H Lab 02/09/22 01:15 Completed TROPONIN Q4H Lab 02/09/22 06:15 Ordered TSH [TSH, 3RD Generation] Stat Lab 02/09/22 00:00 Completed UA W/RFX CULTURE Stat Lab 02/08/22 22:30 Completed Urine Triage Profile Stat Lab 02/08/22 22:30 Completed Medication Summary Discontinued Medications Generic Name Dose Route Start Last Admin Trade Name Freq PRN Reason Stop Dose Admin Aspirin 324 mg 02/09/22 01:29 02/09/22 01:41 Aspirin 81 Mg Tab.Chew PO 02/09/22 01:30 324 mg STAT ONE Administration Lab/Rad Data: Laboratory Result Diagrams 02/08/22 22:35 02/08/22 22:35 Laboratory Results 02/09/22 02/09/22 02/09/22 Range/Units 01:15 00:00 00:00 WBC (4.0-10.5) x10^3/uL RBC (4.1-5.4) x10^6/uL Hgb (12.0-16.0) g/dL Hct (35-47) % MCV (78-100) fL MCH (26-32) pg MCHC (32-36) g/dL RDW (11.5-14.0) % Plt Count (150-450) x10^3/uL MPV (7.5-11.0) fL Gran % (36.0-66.0) % Immature Gran % (Auto) (0.00-0.4) % Nucleat RBC Rel Count (0.00-0.1) % Eos # (Auto) (0-0.5) x10^3/uL Immature Gran # (Auto) (0.00-0.03) x10^3u/L Absolute Lymphs (auto) (1.0-4.6) x10^3/uL Absolute Monos (auto) (0.0-1.3) x10^3/uL Absolute Nucleated RBC (0.00-0.01) x10^3u/L Lymphocytes % (24.0-44.0) % Monocytes % (0.0-12.0) % Eosinophils % (0.00-5.0) % Basophils % (0.0-0.4) % Absolute Granulocytes (1.4-6.9) x10^3/uL Basophils # (0-0.4) x10^3/uL PT (9.4-12.5) SECONDS INR (0.8-3.0) APTT (25.1-36.5) SECONDS D-Dimer 1.19 H* (0.0-0.50) mg/L Sodium (137-145) mmol/L Potassium (3.5-5.1) mmol/L Chloride (98-107) mmol/L Carbon Dioxide (22-30) mmol/L Anion Gap (5-15) MEQ/L BUN (7-17) mg/dL Creatinine (0.52-1.04) mg/dL Estimated GFR ML/MIN Glucose (74-106) mg/dL Calcium (8.4-10.2) mg/dL Total Bilirubin (0.2-1.3) mg/dL AST (14-36) U/L ALT (0-35) U/L Alkaline Phosphatase (38-126) U/L Troponin I 0.137 H* (0.000-0.034) ng/mL NT-Pro-B Natriuret Pep (0-900) pg/mL Serum Total Protein (6.3-8.2) g/dL Albumin (3.5-5.0) g/dL Thyroxine (T4) 12.0 H (5.53-10.96) ug/dL TSH 3rd Generation (0.47-4.68) mIU/L Urinalys Dipstick Clnc Urine Color (YELLOW) Urine Appearance (CLEAR) Urine pH (5-6) Ur Specific [place] (1.005-1.025) POC Urine Protein Conf (Negative) Urine Ketones (NEGATIVE) Urine Nitrite (NEGATIVE) Urine Bilirubin (NEGATIVE) Urine Urobilinogen (0-1) mg/dL Urine Leukocytes (NEGATIVE) Urine WBC (Auto) (0-5) /HPF Urine RBC (Auto) (0-2) /HPF U Hyaline Cast (Auto) (0-2) /LPF U Epithel Cells (Auto) (FEW) /HPF Urine Bacteria (Auto) (NEGATIVE) /HPF Urine RBC (0-5) Joni/ul Urine Mucus (Auto) (NEGATIVE) /HPF Ur Culture Indicated? Urine Glucose (NEGATIVE) mg/dL Urine Opiates Level (NEGATIVE) Ur Methadone (NEGATIVE) Urine Barbiturates (NEGATIVE) Ur Phencyclidine (PCP) (NEGATIVE) Urine Amphetamine (NEGATIVE) U Benzodiazepine Level (NEGATIVE) Urine Cocaine (NEGATIVE) Urine Marijuana (THC) (NEGATIVE) Influenza Type A Ag (NEGATIVE) Influenza Type B Ag (NEGATIVE) RSV (PCR) (Negative) SARS-CoV-2 (PCR) (NEGATIVE) 02/09/22 02/08/22 02/08/22 Range/Units 00:00 22:40 22:35 WBC (4.0-10.5) x10^3/uL RBC (4.1-5.4) x10^6/uL Hgb (12.0-16.0) g/dL Hct (35-47) % MCV (78-100) fL MCH (26-32) pg MCHC (32-36) g/dL RDW (11.5-14.0) % Plt Count (150-450) x10^3/uL MPV (7.5-11.0) fL Gran % (36.0-66.0) % Immature Gran % (Auto) (0.00-0.4) % Nucleat RBC Rel Count (0.00-0.1) % Eos # (Auto) (0-0.5) x10^3/uL Immature Gran # (Auto) (0.00-0.03) x10^3u/L Absolute Lymphs (auto) (1.0-4.6) x10^3/uL Absolute Monos (auto) (0.0-1.3) x10^3/uL Absolute Nucleated RBC (0.00-0.01) x10^3u/L Lymphocytes % (24.0-44.0) % Monocytes % (0.0-12.0) % Eosinophils % (0.00-5.0) % Basophils % (0.0-0.4) % Absolute Granulocytes (1.4-6.9) x10^3/uL Basophils # (0-0.4) x10^3/uL PT (9.4-12.5) SECONDS INR (0.8-3.0) APTT (25.1-36.5) SECONDS D-Dimer (0.0-0.50) mg/L Sodium (137-145) mmol/L Potassium (3.5-5.1) mmol/L Chloride (98-107) mmol/L Carbon Dioxide (22-30) mmol/L Anion Gap (5-15) MEQ/L BUN (7-17) mg/dL Creatinine (0.52-1.04) mg/dL Estimated GFR ML/MIN Glucose (74-106) mg/dL Calcium (8.4-10.2) mg/dL Total Bilirubin (0.2-1.3) mg/dL AST (14-36) U/L ALT (0-35) U/L Alkaline Phosphatase (38-126) U/L Troponin I 0.108 H* (0.000-0.034) ng/mL NT-Pro-B Natriuret Pep (0-900) pg/mL Serum Total Protein (6.3-8.2) g/dL Albumin (3.5-5.0) g/dL Thyroxine (T4) (5.53-10.96) ug/dL TSH 3rd Generation 0.138 L (0.47-4.68) mIU/L Urinalys Dipstick Clnc Urine Color (YELLOW) Urine Appearance (CLEAR) Urine pH (5-6) Ur Specific [place] (1.005-1.025) POC Urine Protein Conf (Negative) Urine Ketones (NEGATIVE) Urine Nitrite (NEGATIVE) Urine Bilirubin (NEGATIVE) Urine Urobilinogen (0-1) mg/dL Urine Leukocytes (NEGATIVE) Urine WBC (Auto) (0-5) /HPF Urine RBC (Auto) (0-2) /HPF U Hyaline Cast (Auto) (0-2) /LPF U Epithel Cells (Auto) (FEW) /HPF Urine Bacteria (Auto) (NEGATIVE) /HPF Urine RBC (0-5) Joni/ul Urine Mucus (Auto) (NEGATIVE) /HPF Ur Culture Indicated? Urine Glucose (NEGATIVE) mg/dL Urine Opiates Level (NEGATIVE) Ur Methadone (NEGATIVE) Urine Barbiturates (NEGATIVE) Ur Phencyclidine (PCP) (NEGATIVE) Urine Amphetamine (NEGATIVE) U Benzodiazepine Level (NEGATIVE) Urine Cocaine (NEGATIVE) Urine Marijuana (THC) (NEGATIVE) Influenza Type A Ag NEGATIVE (NEGATIVE) Influenza Type B Ag NEGATIVE (NEGATIVE) RSV (PCR) NEGATIVE (Negative) SARS-CoV-2 (PCR) NEGATIVE (NEGATIVE) 02/08/22 02/08/22 02/08/22 Range/Units 22:35 22:35 22:35 WBC 8.8 (4.0-10.5) x10^3/uL RBC 4.88 (4.1-5.4) x10^6/uL Hgb 13.7 (12.0-16.0) g/dL Hct 44.4 (35-47) % MCV 91.0 (78-100) fL MCH 28.1 (26-32) pg MCHC 30.9 L (32-36) g/dL RDW 13.9 (11.5-14.0) % Plt Count 229 (150-450) x10^3/uL MPV 11.4 H (7.5-11.0) fL Gran % 79.7 H (36.0-66.0) % Immature Gran % (Auto) 0.3 (0.00-0.4) % Nucleat RBC Rel Count 0.0 (0.00-0.1) % Eos # (Auto) 0.01 (0-0.5) x10^3/uL Immature Gran # (Auto) 0.03 (0.00-0.03) x10^3u/L Absolute Lymphs (auto) 1.38 (1.0-4.6) x10^3/uL Absolute Monos (auto) 0.35 (0.0-1.3) x10^3/uL Absolute Nucleated RBC 0.00 (0.00-0.01) x10^3u/L Lymphocytes % 15.7 L (24.0-44.0) % Monocytes % 4.0 (0.0-12.0) % Eosinophils % 0.1 (0.00-5.0) % Basophils % 0.2 (0.0-0.4) % Absolute Granulocytes 7.01 H (1.4-6.9) x10^3/uL Basophils # 0.02 (0-0.4) x10^3/uL PT 11.9 (9.4-12.5) SECONDS INR 1.14 (0.8-3.0) APTT 26.3 (25.1-36.5) SECONDS D-Dimer (0.0-0.50) mg/L Sodium 135 L (137-145) mmol/L Potassium 4.7 (3.5-5.1) mmol/L Chloride 96 L (98-107) mmol/L Carbon Dioxide 34 H (22-30) mmol/L Anion Gap 10.0 (5-15) MEQ/L BUN 15 (7-17) mg/dL Creatinine 1.02 (0.52-1.04) mg/dL Estimated GFR 59.0 ML/MIN Glucose 120 H (74-106) mg/dL Calcium 9.1 (8.4-10.2) mg/dL Total Bilirubin 0.50 (0.2-1.3) mg/dL AST 31 (14-36) U/L ALT 28 (0-35) U/L Alkaline Phosphatase 140 H (38-126) U/L Troponin I (0.000-0.034) ng/mL NT-Pro-B Natriuret Pep 1190 H (0-900) pg/mL Serum Total Protein 6.9 (6.3-8.2) g/dL Albumin 4.0 (3.5-5.0) g/dL Thyroxine (T4) (5.53-10.96) ug/dL TSH 3rd Generation (0.47-4.68) mIU/L Urinalys Dipstick Clnc Urine Color (YELLOW) Urine Appearance (CLEAR) Urine pH (5-6) Ur Specific [place] (1.005-1.025) POC Urine Protein Conf (Negative) Urine Ketones (NEGATIVE) Urine Nitrite (NEGATIVE) Urine Bilirubin (NEGATIVE) Urine Urobilinogen (0-1) mg/dL Urine Leukocytes (NEGATIVE) Urine WBC (Auto) (0-5) /HPF Urine RBC (Auto) (0-2) /HPF U Hyaline Cast (Auto) (0-2) /LPF U Epithel Cells (Auto) (FEW) /HPF Urine Bacteria (Auto) (NEGATIVE) /HPF Urine RBC (0-5) Joni/ul Urine Mucus (Auto) (NEGATIVE) /HPF Ur Culture Indicated? Urine Glucose (NEGATIVE) mg/dL Urine Opiates Level (NEGATIVE) Ur Methadone (NEGATIVE) Urine Barbiturates (NEGATIVE) Ur Phencyclidine (PCP) (NEGATIVE) Urine Amphetamine (NEGATIVE) U Benzodiazepine Level (NEGATIVE) Urine Cocaine (NEGATIVE) Urine Marijuana (THC) (NEGATIVE) Influenza Type A Ag (NEGATIVE) Influenza Type B Ag (NEGATIVE) RSV (PCR) (Negative) SARS-CoV-2 (PCR) (NEGATIVE) 02/08/22 02/08/22 Range/Units 22:30 22:30 WBC (4.0-10.5) x10^3/uL RBC (4.1-5.4) x10^6/uL Hgb (12.0-16.0) g/dL Hct (35-47) % MCV (78-100) fL MCH (26-32) pg MCHC (32-36) g/dL RDW (11.5-14.0) % Plt Count (150-450) x10^3/uL MPV (7.5-11.0) fL Gran % (36.0-66.0) % Immature Gran % (Auto) (0.00-0.4) % Nucleat RBC Rel Count (0.00-0.1) % Eos # (Auto) (0-0.5) x10^3/uL Immature Gran # (Auto) (0.00-0.03) x10^3u/L Absolute Lymphs (auto) (1.0-4.6) x10^3/uL Absolute Monos (auto) (0.0-1.3) x10^3/uL Absolute Nucleated RBC (0.00-0.01) x10^3u/L Lymphocytes % (24.0-44.0) % Monocytes % (0.0-12.0) % Eosinophils % (0.00-5.0) % Basophils % (0.0-0.4) % Absolute Granulocytes (1.4-6.9) x10^3/uL Basophils # (0-0.4) x10^3/uL PT (9.4-12.5) SECONDS INR (0.8-3.0) APTT (25.1-36.5) SECONDS D-Dimer (0.0-0.50) mg/L Sodium (137-145) mmol/L Potassium (3.5-5.1) mmol/L Chloride (98-107) mmol/L Carbon Dioxide (22-30) mmol/L Anion Gap (5-15) MEQ/L BUN (7-17) mg/dL Creatinine (0.52-1.04) mg/dL Estimated GFR ML/MIN Glucose (74-106) mg/dL Calcium (8.4-10.2) mg/dL Total Bilirubin (0.2-1.3) mg/dL AST (14-36) U/L ALT (0-35) U/L Alkaline Phosphatase (38-126) U/L Troponin I (0.000-0.034) ng/mL NT-Pro-B Natriuret Pep (0-900) pg/mL Serum Total Protein (6.3-8.2) g/dL Albumin (3.5-5.0) g/dL Thyroxine (T4) (5.53-10.96) ug/dL TSH 3rd Generation (0.47-4.68) mIU/L Urinalys Dipstick Clnc MAIN LAB Urine Color [place] (YELLOW) Urine Appearance CLEAR (CLEAR) Urine pH 5.0 (5-6) Ur Specific [place] >=1.030 (1.005-1.025) POC Urine Protein Conf TRACE (Negative) Urine Ketones NEGATIVE (NEGATIVE) Urine Nitrite NEGATIVE (NEGATIVE) Urine Bilirubin NEGATIVE (NEGATIVE) Urine Urobilinogen 0.2 (0-1) mg/dL Urine Leukocytes NEGATIVE (NEGATIVE) Urine WBC (Auto) 0-2 (0-5) /HPF Urine RBC (Auto) NONE (0-2) /HPF U Hyaline Cast (Auto) 11-25 (0-2) /LPF U Epithel Cells (Auto) NONE (FEW) /HPF Urine Bacteria (Auto) NONE (NEGATIVE) /HPF Urine RBC NEGATIVE (0-5) Joni/ul Urine Mucus (Auto) SLIGHT (NEGATIVE) /HPF Ur Culture Indicated? NO Urine Glucose NEGATIVE (NEGATIVE) mg/dL Urine Opiates Level NEGATIVE (NEGATIVE) Ur Methadone NEGATIVE (NEGATIVE) Urine Barbiturates NEGATIVE (NEGATIVE) Ur Phencyclidine (PCP) NEGATIVE (NEGATIVE) Urine Amphetamine NEGATIVE (NEGATIVE) U Benzodiazepine Level NEGATIVE (NEGATIVE) Urine Cocaine NEGATIVE (NEGATIVE) Urine Marijuana (THC) NEGATIVE (NEGATIVE) Influenza Type A Ag (NEGATIVE) Influenza Type B Ag (NEGATIVE) RSV (PCR) (Negative) SARS-CoV-2 (PCR) (NEGATIVE) - Progress Progress Note: 02/09/22 03:23 Regional not accepting pts Pt put on waiting list at [place] Pt accepted by Dr. Grace at [facility]/Does not want to heparinize at this time ASA 324mg po chewable 02/09/22 04:14 Counseled pt/family regarding: lab results, diagnosis, need for follow-up, rad results - Departure Departure Disposition: Transfer Clinical Impression: NSTEMI (non-ST elevated myocardial infarction), Colitis Condition: Stable Critical Care Time: No Referrals: LUIS FELIPE ESTRELLA [Primary Care Provider] - Follow up/PCP as directed
[2022-02-08 23:18] LABS: Amphetamine,Urine NEGATIVE (NEGATIVE); Barbiturate,Urine NEGATIVE (NEGATIVE); Benzodiazepine,Urine NEGATIVE (NEGATIVE); Cocaine,Urine NEGATIVE (NEGATIVE); Methadone,Urine NEGATIVE (NEGATIVE); Opiate,Urine NEGATIVE (NEGATIVE); PCP,Urine NEGATIVE (NEGATIVE); THC,Urine NEGATIVE (NEGATIVE)
[2022-02-08 23:27] LABS: INFLUENZA A NEGATIVE (NEGATIVE); INFLUENZA B NEGATIVE (NEGATIVE); RESPIRATORY SYNCTIAL VIRUS NEGATIVE (Negative); SARS-CoV-2 Xpert Express NEGATIVE (NEGATIVE)
[2022-02-09 00:03] LABS: BILIRUBIN,TOTAL 0.5 mg/dL (0.2-1.3); Calcium 9.1 mg/dL (8.4-10.2); Creatinine 1 1.02 mg/dL (0.52-1.04); Potassium 4.7 mmol/L (3.5-5.1); Total Protein 6.9 g/dL (6.3-8.2)
[2022-02-09] MEDS ORDERED: BABY ASPIRIN 81 MG CHEW PO ONE (01:29)
[2022-02-09 02:35] VITALS: O2SAT 84
[2022-02-09 03:33] VITALS: BP 116/86; PULSE 73
--- NOTE | 2022-02-09 20:27 | XRAY ---
Exam: AP portable chest film from 02/08/2022. Comparison: AP upright portable chest film from 04/21/2021. Indication: Dyspnea. Findings: The transverse heart size appears towards the upper limits of normal. There is some magnification on this AP portable technique. There is slight tortuosity of the descending thoracic aorta. The maira and mediastinal structures appear unremarkable. There is some opacity obscuring the left lateral costophrenic angle. Subsequent CT of the chest suggests that this is due to a combination of prominent epicardial fat at the left cardiophrenic angle superimposed upon some discoid atelectasis/scarring. The remainder of the lung graham appears essentially clear. No pulmonary vascular congestion or pleural effusion is seen. There is no pneumothorax. Lateral osteophyte formation is seen within the thoracic spine. Mild osteoarthritic changes seen at both acromioclavicular joints. Impression: 1. The heart size appears towards the upper limits of normal. I see no findings of CHF or cardiac decompensation. 2. Focal opacity obscures the left lateral costophrenic angle and is believed to be due to a combination of prominent epicardial fat and some mild discoid atelectasis/scarring in this projection on subsequent CT of the chest obtained the same evening. 3. The remainder of the lung graham appears clear.
--- NOTE | 2022-02-10 17:48 | XRAY ---
Exam: CT of the head without IV contrast from 02/08/2022. CTDI: 53.92 mGy Comparison: CT of the head without IV contrast from 04/15/2013. Indication: 61-year-old female with history of confusion and dizziness. Technique: Non-IV contrast axial images were obtained through the brain. Reconstructed coronal and sagittal images were created and reviewed. Findings: The ventricles appear of normal size. No focal mass effect or midline shift is seen. No acute intracranial bleed or abnormal extra-axial fluid collection is seen. The carcamo matter-white matter junctions appear unremarkable. No low attenuation infarct is seen. The cortical sulci and basilar cisterns appear unremarkable. Mild vascular calcification is seen within both distal vertebral arteries on axial image #12. This is seen on the prior CT study from 04/15/2013 in retrospect. The calvarium of the skull appears intact without fracture or other significant bone lesion. The visualized paranasal sinuses are clear without air-fluid levels. The mastoid air cells are clear without effusion. The middle ear cavities appear unremarkable. The orbits reveal no gross abnormality. Impression: 1. No acute intracranial bleed or other acute intracranial process is seen, no change from 04/15/2013.
--- NOTE | 2022-02-11 13:57 | XRAY ---
Exam: CT of the chest with IV contrast, per PE protocol, from 02/09/2022. CTDI: 30.57 mGy Comparison: AP portable chest film from 02/08/2022. Indication: 61-year-old female with dyspnea and elevated d-dimer suggesting possible PE Technique: Post-IV contrast axial images were obtained through the chest utilizing 100 cc of Isovue-370 contrast using the PE protocol. Reconstructed coronal and sagittal images were obtained. In addition, axial MIP images were obtained. Findings: The pulmonary arterial tree appears adequately opacified, and I see no filling defects to suggest clot/emboli. The thoracic aorta reveals no aneurysm or evidence of dissection. The heart size is normal without evidence of pericardial effusion. No abnormal mediastinal or perihilar lymphadenopathy is seen. The lungs reveal minimal posterior dependent atelectatic changes within the posterior lung sulci. I also note minimal linear scarring/atelectasis at the anterior lateral left lung base in the anterior right upper lung field. No significant airspace disease or suspicious soft tissue lung nodules are evident. No pneumothorax or pleural effusion is seen. The upper abdomen reveals surgical clips consistent with prior cholecystectomy. The adrenal glands appear of normal size and configuration. No other significant abnormality is seen within the visualized upper abdomen. The skeleton reveals no acute fracture or aggressive bone lesion. Moderate vertebral endplate spurring is seen throughout the majority of the thoracic spine. Impression: 1. No CT evidence of pulmonary embolus is seen. Nor do I see evidence of thoracic aortic aneurysm or dissection. 2. No other acute process is seen within the chest.
--- NOTE | 2022-02-11 14:34 | XRAY ---
Exam: CT of the abdomen and pelvis with IV contrast from 02/09/2022. CTDI: 30.57 mGy Comparison: CT of the abdomen without IV contrast from 09/22/2020. Indication: 61-year-old female with nausea/vomiting; past history of cholecystectomy, hysterectomy, and tubal ligation. Technique: Post-IV contrast axial images were obtained through the abdomen and pelvis during and following 100 cc IV injection of Isovue-370 contrast material. Delay axial images were obtained as well. Reconstructed coronal and sagittal images were created and reviewed. Findings: The lung bases reveal minimal posterior dependent atelectatic changes within the posterior lung sulci. Minimal linear scarring/atelectasis is seen at the lateral left lung base. There is equivocal evidence of a minimal sliding hiatal hernia on coronal image #91. In retrospect, this is unchanged. The liver is of unremarkable size and uniform attenuation. No hepatic mass or intrahepatic biliary duct distention is seen. Surgical clips consistent with prior cholecystectomy are noted. There is mild prominence of the common bile duct which can be seen in post cholecystectomy individuals. The spleen is of normal size and reveals no mass. Both the pancreas and adrenal glands appear unremarkable. The kidneys are of average size and reveal no mass, calculi, or hydronephrosis. The kidneys function on delayed imaging. Minimal vascular calcification is seen within the abdominal aorta and iliac arteries. There is no abdominal aortic aneurysm. I note a stable 0.9 cm in diameter round lymph node between the IVC and abdominal aorta just below the renal vessels that is unchanged from 09/22/2020. No abnormal retroperitoneal lymphadenopathy is seen. There is no free intraperitoneal air or ventral abdominal wall hernia. The bowel is not distended. There is scattered stool throughout the colon. There is a question of mild mucosal thickening within the ascending colon. Also, there is some questionable mucosal thickening within the hepatic flexure and the descending colon, although this could be in part be explained by underdistention of these latter bowel segments. Nonspecific colitis is not excluded. The appendix is identified and appears unremarkable. The uterus is surgically absent. The urinary bladder is incompletely distended but appears grossly unremarkable. Some calcified phleboliths are seen within the lower pelvis on each side of midline, more numerous on the left than right. No abnormal pelvic mass, pelvic lymphadenopathy, or free intraperitoneal fluid is seen. The skeleton reveals mild bilateral acetabular spurring of the hip joints. There is also suggestion of mild hip joint space narrowing. I see no fracture or aggressive bone lesion. There is a least moderate lower lumbar facet joint arthropathy, most pronounced at L4-L5. Associated vertebral endplate spurring is seen within the lower thoracolumbar spine, most prominent within the lower thoracic spine. I believe there is some mild lumbar canal stenosis at L4-L5 with moderate L4-L5 lateral recess stenosis (due to a combination of posterior vertebral endplate spurring and prominent facet joint arthropathy at this level). Impression: 1. There is a suggestion of some mild mucosal thickening within the ascending colon. There also appears to be some mild mucosal thickening within the hepatic flexure and descending colon, although part of these latter findings may be secondary to underdistention. A nonspecific colitis cannot be excluded. Correlate clinically. 2. Normal appendix. 3. Status post cholecystectomy and hysterectomy. 4. Equivocal evidence of minimal sliding hiatal hernia. 5. No other evidence of acute process is seen within the abdomen or pelvis. 6. Skeletal findings, as discussed above.
== END 2022-02-09 03:55 | disposition short-term general hospital (02) ==
LOC: ED 21:27
DX: I21.4 Non-ST elevation (NSTEMI) myocardial infarction (principal); K52.9 Noninfective gastroenteritis and colitis, unspecified; R11.2 Nausea with vomiting, unspecified; R06.00 Dyspnea, unspecified; R53.83 Other fatigue; R42 Dizziness and giddiness; I25.2 Old myocardial infarction; Z79.891 Long term (current) use of opiate analgesic; Z79.84 Long term (current) use of oral hypoglycemic drugs; Z79.899 Other long term (current) drug therapy; Z28.310 Unvaccinated for COVID-19
CPT/HCPCS: 0241U; 36000; 36415; 70450; 71045; 71260; 74177; 80053; 80307; 81015; 83880; 84436; 84443; 84484; 85025; 85379; 85610; 85730; 93005; 99285; A9270-GY

== ENCOUNTER 2022-03-28 18:09 | Emergency (ER) | payer OTHER ==
--- NOTE | 2022-03-28 21:26 | ERPHSYRPT ---
- History of Present Illness Time Seen by Provider: 03/28/22 21:22 Exam Limitations: no limitations Patient Subjective Stated Complaint: PT states "Ever since I got out of the hospital on february 11 I have had pain in my right groin down to my right knee. I have been x rayed, ultrasound and no one can figure out what is wrong." Triage Nursing Assessment: Pt presented alert and oriented X 3, skin pwd. PT ambulates with a limp. pt has hard time putting weight on her right leg. PT CSM X 4. Pt right leg tender to touch just behind the knee, both legs are pink warm and cool. Physician History: Patient is a 62-year-old female presents to emergency department for evaluation of right hip pain. Patient has been experiencing right hip pain for approximately 1 month. Patient states the pain is progressive. Patient had a ultrasound of the right lower extremity which was negative. Pain described as an ache that is localized to the right groin area. Pain worse with any motion of the right hip. Abduction and adduction and flexion extension all reproduce her symptoms. No trauma. No fever. No nausea or vomiting. Symptoms are mild to moderate in intensity. Weightbearing and heel tap also reproduces pain. Patient voices no other complaints or concerns at this time. Patient declined pain medication Portions of this note were created with voice recognition technology. There may be grammatical, spelling, punctuation or sound alike errors Timing/Duration: week(s) (1 month) Severity: moderate Modifying Factors: Improves With: nothing Associated Symptoms: denies symptoms Allergies/Adverse Reactions: No Known Drug Allergies Allergy (Verified 02/08/22 21:57) Home Medications: Albuterol Sulfate [Albuterol Sulfate Hfa] 8.5 gm IH DAILY PRN 03/28/22 [History] Budesonide/Formoterol Fumarate [Budesonide-Formoterol 160-4.5] 10.2 gm IH DAILY 03/28/22 [History] Calcium Carb/Vitamin D3/Vit K1 [Calcium + D Soft Chewable Tab] 1 each PO BID 03/28/22 [History] Gabapentin 100 mg PO BID 03/28/22 [History] Levothyroxine Sodium 150 mcg PO DAILY 03/28/22 [History] Ranolazine [Ranolazine ER] 1,000 mg PO BID 03/28/22 [History] Sertraline HCl [Zoloft] 100 mg PO DAILY 03/28/22 [History] Tramadol HCl 50 mg [Ultram 50 mg] 50 mg PO TID 03/28/22 [History] Tramadol HCl [Tramadol HCl ER] 200 mg PO DAILY 03/28/22 [History] Hx Tetanus, Diphtheria Vaccination/Date Given: No Hx Influenza Vaccination/Date Given: No Hx Pneumococcal Vaccination/Date Given: No Immunizations Up to Date: Yes Travel Risk - International Travel Have you traveled outside of the country in past 3 weeks: No - Coronavirus Screening Are you exhibiting any of the following symptoms?: No Close contact with a COVID-19 positive Pt in past 14-21 Days: No - Vaccine Status Have you recieved a Covid-19 vaccination: No - Review of Systems Constitutional: No Symptoms, No Fever, No Chills Eyes: No Symptoms Ears, Nose, & Throat: No Symptoms Respiratory: No Symptoms, No Cough, No Dyspnea Cardiac: No Symptoms, No Chest Pain, No Edema, No Syncope Abdominal/Gastrointestinal: No Symptoms, No Abdominal Pain, No Nausea, No Vomiting, No Diarrhea Genitourinary Symptoms: No Symptoms, No Dysuria Musculoskeletal: No Symptoms, No Back Pain, No Neck Pain Skin: No Symptoms, No Rash Neurological: No Symptoms, No Dizziness, No Focal Weakness, No Sensory Changes Psychological: No Symptoms Endocrine: No Symptoms Hematologic/Lymphatic: No Symptoms Immunological/Allergic: No Symptoms All Other Systems: Reviewed and Negative - Past Medical History Pertinent Past Medical History: Yes Neurological History: No Pertinent History ENT History: No Pertinent History Cardiac History: Congenital Heart Disease, Coronary Artery Disease, Myocardial Infarction ([place]) Respiratory History: Asthma Endocrine Medical History: Hypothyroidism Musculoskeletal History: Osteoarthritis GI Medical History: GERD History: No Pertinent History Psycho-Social History: No Pertinent History Female Reproductive Disorders: Cervical Cancer Other Medical History: . - Past Surgical History Past Surgical History: Yes Neuro Surgical History: No Pertinent History Cardiac: Cardiac Catheterization Respiratory: No Pertinent History, Other Gastrointestinal: Cholecystectomy Genitourinary: No Pertinent History Musculoskeletal: Orthopedic Surgery Female Surgical History: Hysterectomy, Tubal Ligation Other Surgical History: bilat bone surgery on both feet "bone spurs" - Social History Smoking Status: Never smoker Exposure to second hand smoke: Yes Alcohol Use: None Drug Use: none Patient Lives Alone: No Significant Family History: heart disease, hypertension - Nursing Vital Signs Nursing Vital Signs: Initial Vital Signs Temperature 97.6 F 03/28/22 18:36 Pulse Rate 85 03/28/22 18:36 Respiratory Rate 20 03/28/22 18:36 Blood Pressure 153/86 03/28/22 18:36 O2 Sat by Pulse Oximetry 96 03/28/22 18:36 Pain Scale Pain Intensity 5 - Physical Exam General Appearance: no apparent distress, alert Eye Exam: PERRL/EOMI, eyes nml inspection Ears, Nose, Throat Exam: normal ENT inspection, TMs normal, pharynx normal, moist mucous membranes Neck Exam: normal inspection, non-tender, supple, full range of motion Respiratory Exam: normal breath sounds, lungs clear, airway intact, No respiratory distress Cardiovascular Exam: regular rate/rhythm, normal heart sounds, normal peripheral pulses Gastrointestinal/Abdomen Exam: soft, normal bowel sounds, No tenderness, No mass Back Exam: normal inspection, normal range of motion, No CVA tenderness, No vertebral tenderness Extremity Exam: normal inspection, normal range of motion, pelvis stable, other (Tenderness palpation to right hip flexor crease. Overlying soft tissue intact. No signs of trauma. Right lower extremities neurovascular intact distally. Compartments are soft. Cap refill less than 2 seconds.) Neurologic Exam: alert, oriented x 3, cooperative, normal mood/affect, nml cerebellar function, nml station & gait, sensation nml, No motor deficits Skin Exam: normal color, warm, dry, No rash Lymphatic Exam: No adenopathy SpO2 Interpretation: normal SpO2: 96 O2 Delivery: Room Air - Course Nursing assessment & vital signs reviewed: Yes - CT Exams Lower Extremity CT Interpretation: Tele-radiologist Report (Continue negative compared to 02/09/2022) Ordered Tests: Active Orders 24 hr Category Date Time Status LOWER EXTREMITY WO CONTRAST [CT] Stat Exams 03/28/22 21:21 Taken - Progress Progress: improved Progress Note: Patient reassessed. Patient feels well. Patient resting comfortably. She declined pain medication. CT right hip negative. Patient will likely require an MRI. Patient will be sent to orthopedic clinic for further evaluation and treatment. Patient has a walker at home. She voices no other complaints or concerns at this time. Ortho referral completed. Portions of this note were created with voice recognition technology. There may be grammatical, spelling, punctuation or sound alike errors 03/28/22 22:46 Counseled pt/family regarding: diagnosis, need for follow-up, rad results - Departure Departure Disposition: Home Clinical Impression: Hip pain, right Condition: Stable Critical Care Time: No Referrals: LUIS FELIPE ESTRELLA [Primary Care Provider] - Follow up/PCP as directed Additional Instructions: Discharge/Care Plan RAFFI ISAACS was seen on 03/28/22 in the Emergency Room. The patient was counseled regarding Diagnosis,Lab results, Imaging studies, need for follow up and when to return to the Emergency Room. Prescriptions given: Discharge Note I have spoken with the patient and/or caregivers. I have explained the patient's condition, diagnosis and treatment plan based on the information available to me at this time. I have answered the patient's and/or caregiver's questions and addressed any concerns. The patient and/or caregivers have as good understanding of the patient's diagnosis, condition and treatment plan as can be expected at this point. The vital signs have been stable. The patient's condition is stable and appropriate for discharge from the emergency department. The patient will pursue further outpatient evaluation with the primary care physician or other designated or consulting physician as outlined in the discharge instructions. The patient and/or caregivers are agreeable to this plan of care and follow-up instructions have been explained in detail. The patient and/or caregivers have received these instruction. The patient/and or caregivers are aware that any significant change in condition or worsening of symptoms should prompt an immediate return to this or the closest emergency department or call 911. Outpatient Orders: Ortho Referral Time Frame: 1 Day, Facility: [facility]. Hosp, Location: [facility]
[2022-03-28 22:48] VITALS: O2SAT 96
[2022-03-28 22:59] VITALS: BP 110/58; PULSE 110
--- NOTE | 2022-03-29 08:41 | XRAY ---
Indication: Right hip pain. No known injury. Fracture. Multiple contiguous axial images obtained through the right hip. Sagittal and coronal reformatted images obtained. Comparison: CT abdomen/pelvis February 09, 2022 No acute fracture, dislocation, or suspicious bony lesions. Visualized noncontrasted soft tissues unremarkable. Visualized pelvis demonstrates colonic fecal debris. Impression: Negative CT right hip.
== END 2022-03-28 22:58 | disposition home or self-care (01) ==
LOC: ED 18:09
DX: M25.551 Pain in right hip (principal); I25.10 Atherosclerotic heart disease of native coronary artery without angina pectoris; Z79.891 Long term (current) use of opiate analgesic; Z79.899 Other long term (current) drug therapy
CPT/HCPCS: 73700; 99283

== ENCOUNTER 2023-07-14 13:24 | Emergency (ER) | payer OTHER ==
--- NOTE | 2023-07-14 13:33 | ERPHSYRPT ---
- History of Present Illness Time Seen by Provider: 07/14/23 13:32 Source: patient, family Exam Limitations: no limitations Physician History: This is an overweight 63-year-old white female patient who fell onto her left hip in April 2023 and never had it evaluated. Patient has been walking on it moving but there has always been some discomfort. In the last week the pain in her left hip and left groin area have significantly worsened. Is difficult for her to walk. Patient has had past surgical history on both of her feet in the past 2 eliminate bone spurs. Patient does have a history of osteoarthritis. She has a history of hypothyroidism, COPD/asthma, coronary artery disease and gastroesophageal reflux disease. Patient denies shortness of breath. Patient denies chest pain. She has no abdominal pain. Timing/Duration: worse (Worsening symptoms in the last week), other (April 2023) Context: fall (April 2023) Quality: aching Hip Pain Location: hip (L) Severity of Pain-Max: moderate Severity of Pain-Current: moderate Modifying Factors: Improves With: movement Symptoms prior to fall: none Associated Symptoms: denies symptoms Allergies/Adverse Reactions: No Known Drug Allergies Allergy (Verified 07/14/23 13:34) Home Medications: Albuterol Sulfate [Albuterol Sulfate Hfa] 8.5 gm IH DAILY PRN 03/28/22 [History] Calcium Carb/Vitamin D3/Vit K1 [Calcium + D Soft Chewable Tab] 1 each PO BID 03/28/22 [History] Levothyroxine Sodium 75 mcg PO DAILY 03/28/22 [History] Ranolazine [Ranolazine ER] 1,000 mg PO BID 03/28/22 [History] Sertraline HCl [Zoloft] 100 mg PO DAILY 03/28/22 [History] Tramadol HCl 50 mg [Ultram 50 mg] 50 mg PO BID 03/28/22 [History] Cholecalciferol (Vitamin D3) [Vitamin D3] 50,000 unit PO WEEKLY 07/14/23 [History] Melatonin 1 tab PO HS PRN 07/14/23 [History] Hx Tetanus, Diphtheria Vaccination/Date Given: No Hx Influenza Vaccination/Date Given: No Hx Pneumococcal Vaccination/Date Given: No Travel Risk - International Travel Have you traveled outside of the country in past 3 weeks: No - Coronavirus Screening Are you exhibiting any of the following symptoms?: No Close contact with a COVID-19 positive Pt in past 14-21 Days: No - Vaccine Status Have you recieved a Covid-19 vaccination: No - Review of Systems Constitutional: No Symptoms Eyes: No Symptoms Ears, Nose, & Throat: No Symptoms Respiratory: No Symptoms Cardiac: No Symptoms Abdominal/Gastrointestinal: No Symptoms Genitourinary Symptoms: No Symptoms Musculoskeletal: Joint Pain (Hip and left groin pain with movement and ambulation) Skin: No Symptoms Neurological: No Symptoms Psychological: No Symptoms Endocrine: No Symptoms Hematologic/Lymphatic: No Symptoms Immunological/Allergic: No Symptoms All Other Systems: Reviewed and Negative - Past Medical History Pertinent Past Medical History: Yes Neurological History: No Pertinent History ENT History: No Pertinent History Cardiac History: Congenital Heart Disease, Coronary Artery Disease, Myocardial Infarction (ID) Respiratory History: Asthma Endocrine Medical History: Hypothyroidism Musculoskeletal History: Osteoarthritis GI Medical History: GERD History: No Pertinent History Psycho-Social History: No Pertinent History Female Reproductive Disorders: Cervical Cancer Other Medical History: . - Past Surgical History Past Surgical History: Yes Neuro Surgical History: No Pertinent History Cardiac: Cardiac Catheterization Respiratory: No Pertinent History, Other Gastrointestinal: Cholecystectomy Genitourinary: No Pertinent History Musculoskeletal: Orthopedic Surgery Female Surgical History: Hysterectomy, Tubal Ligation Other Surgical History: bilat bone surgery on both feet "bone spurs" - Social History Smoking Status: Never smoker Exposure to second hand smoke: Yes Alcohol Use: None Drug Use: none Patient Lives Alone: No Significant Family History: heart disease, hypertension - Nursing Vital Signs Nursing Vital Signs: Initial Vital Signs Blood Pressure 145/78 07/14/23 13:34 O2 Sat by Pulse Oximetry 95 07/14/23 13:34 Pain Scale Pain Intensity 8 - Physical Exam General Appearance: mild distress, alert, obese Eye Exam: PERRL/EOMI, eyes nml inspection Ears, Nose, Throat Exam: normal ENT inspection, moist mucous membranes Neck Exam: normal inspection, non-tender, supple, full range of motion Respiratory Exam: normal breath sounds, lungs clear, airway intact, No chest tenderness, No respiratory distress Cardiovascular Exam: regular rate/rhythm, normal heart sounds, normal peripheral pulses Gastrointestinal Exam: soft, normal bowel sounds, No tenderness, No guarding Pelvic Exam: not done Rectal Exam: not done Back Exam: normal inspection, normal range of motion, No CVA tenderness, No vertebral tenderness Extremity Exam: normal inspection, pelvis stable, limited range of motion (Left hip with pain on flexion and extension), No deformities Neurologic Exam: alert, oriented x 3, cooperative, 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, normal mood/affect, sensation nml Skin Exam: normal color, warm, dry Lymphatic Exam: No adenopathy SpO2 Interpretation: normal O2 Delivery: Room Air - Course Nursing assessment & vital signs reviewed: Yes Ordered Tests: Active Orders 24 hr Category Date Time Status EKG-ER Only STAT Care 07/14/23 14:12 Active IV Insertion STAT Care 07/14/23 13:58 Active LOWER EXTREMITY WO CONTRAST [CT] Stat Exams 07/14/23 13:53 Completed MRI LOW EXT JOINT W/O CONTRAST [MRI] Stat Exams 07/14/23 14:55 Completed PELVIS WITHOUT CONTRAST [CT] Stat Exams 07/14/23 13:52 Completed CBC W DIFF Stat Lab 07/14/23 13:57 Completed CMP Stat Lab 07/14/23 13:57 Completed Medication Summary Generic Name Dose Route Start Last Admin Trade Name Freq PRN Reason Stop Dose Admin Sodium Chloride 1,000 mls @ 50 mls/hr 07/14/23 14:15 07/14/23 14:25 Sodium Chloride 0.9% 1000 Ml IV 08/13/23 14:14 50 mls/hr .Q20H KRIS Administration Discontinued Medications Generic Name Dose Route Start Last Admin Trade Name Freq PRN Reason Stop Dose Admin Lorazepam 0.5 mg 07/14/23 15:21 07/14/23 15:26 Lorazepam 2 Mg/1 Ml 2 Mg Vial IV 07/14/23 15:22 0.5 mg STAT ONE Administration Lorazepam Confirm 07/14/23 15:25 Lorazepam 2 Mg/1 Ml 2 Mg Vial Administered 07/14/23 15:26 Dose 2 mg .ROUTE .STK-MED ONE Morphine Sulfate 4 mg 07/14/23 14:12 07/14/23 14:25 Morphine Sulfate 4 Mg/Ml Injection IV 07/14/23 14:13 4 mg STAT ONE Administration Morphine Sulfate Confirm 07/14/23 14:22 Morphine Sulfate 4 Mg/Ml Injection Administered 07/14/23 14:23 Dose 4 mg .ROUTE .STK-MED ONE Ondansetron HCl 4 mg 07/14/23 14:12 07/14/23 14:25 Ondansetron Hcl 4 Mg/2 Ml Vial IV 07/14/23 14:13 4 mg STAT ONE Administration Ondansetron HCl Confirm 07/14/23 14:22 Ondansetron Hcl 4 Mg/2 Ml Vial Administered 07/14/23 14:23 Dose 4 mg .ROUTE .STK-MED ONE Lab/Rad Data: Laboratory Result Diagrams 07/14/23 13:57 07/14/23 13:57 Laboratory Results 07/14/23 07/14/23 Range/Units 13:57 13:57 WBC 6.4 (4.0-10.5) x10^3/uL RBC 4.92 (4.1-5.4) x10^6/uL Hgb 13.9 (12.0-16.0) g/dL Hct 44.2 (35-47) % MCV 89.8 (78-100) fL MCH 28.3 (26-32) pg MCHC 31.4 L (32-36) g/dL RDW 14.5 H (11.5-14.0) % Plt Count 269 (150-450) x10^3/uL MPV 12.1 H (7.5-11.0) fL Gran % 54.6 (36.0-66.0) % Immature Gran % (Auto) 0.3 (0.00-0.4) % Nucleat RBC Rel Count 0.0 (0.00-0.1) % Eos # (Auto) 0.06 (0-0.5) x10^3/uL Immature Gran # (Auto) 0.02 (0.00-0.03) x10^3u/L Absolute Lymphs (auto) 2.41 (1.0-4.6) x10^3/uL Absolute Monos (auto) 0.39 (0.0-1.3) x10^3/uL Absolute Nucleated RBC 0.00 (0.00-0.01) x10^3u/L Lymphocytes % 37.8 (24.0-44.0) % Monocytes % 6.1 (0.0-12.0) % Eosinophils % 0.9 (0.00-5.0) % Basophils % 0.3 (0.0-0.4) % Absolute Granulocytes 3.47 (1.4-6.9) x10^3/uL Basophils # 0.02 (0-0.4) x10^3/uL Sodium 140 (137-145) mmol/L Potassium 4.5 (3.5-5.1) mmol/L Chloride 107 (98-107) mmol/L Carbon Dioxide 24 (22-30) mmol/L Anion Gap 12.6 (5-15) MEQ/L BUN 18 H (7-17) mg/dL Creatinine 0.85 (0.52-1.04) mg/dL Estimated GFR 77.9 ML/MIN Glucose 90 (74-106) mg/dL Calcium 9.0 (8.4-10.2) mg/dL Total Bilirubin 0.50 (0.2-1.3) mg/dL AST 23 (14-36) U/L ALT 13 (0-35) U/L Alkaline Phosphatase 129 H (38-126) U/L Serum Total Protein 7.4 (6.3-8.2) g/dL Albumin 4.1 (3.5-5.0) g/dL - Progress Progress: improved, pain not gone completely Progress Note: 07/14/23 14:06 This patient's medical issue is 1 of moderate complexity. The level of complexity in the workup performed is based on review of the patient's past medical history, review of the patient's medication list, review of the patient 's drug allergy list, history present illness and physical findings on examination. The workup in this patient includes placement of intravenous line, CBC, CMP, PT/INR, CT scan of the left hip and pelvis without contrast. We will provide the patient with intravenous morphine and Zofran for pain control. 07/14/23 14:[address] was interpreted by the radiologist and I reviewed the impression. There is a new, tiny nondisplaced hairline fracture left superior acetabulum. There is stable degenerative changes in both hips. The CT scan of the left hip was interpreted by the radiologist and I reviewed the impression. There is new tiny, displaced fracture superior acetabulum. 07/14/23 15:04 I spoke with the orthopedic surgeon Dr. Valdovinos. I reviewed the patient history, physical findings on examination and the results of the CT scan of the pelvis and left hip. Based on what I reported to him from the radiologist interpretation of CT scan, he says this type of hairline fracture does not generally require surgical intervention. However, he has seen, a few cases where this finding actually turned out to be acetabular neck fracture which would require surgical intervention. He recommends MRI of the left hip. 07/14/23 16:59 MRI of the left hip was interpreted by the radiologist and I have reviewed the impression. I also have discussed this with the patient. The MRI impression states minimal bone edema signal left superior acetabulum corresponding to the tiny hairline fracture that was present on the CT scan of the left hip performed earlier today. I will discuss with the patient what she would like to have done. She has been walking on this. The recommendation by Dr. Valdovinos the orthopedic was use of walker and pain control. He states no surgical intervention is necessary. This will heal with time. I did discuss with the patient regarding bring her in the hospital for pain control and to obtain physical therapy consultation. It is Monday. I am uncertain if there is physical therapy available. I will discuss with the patient again to see what she would like to have done. 07/14/23 17:24 Patient states that now she knows was going on she would like to just go home and make arrangement with her outpatient physician to see a physical therapist. 07/14/23 17:25 Patient states that she has a walker at home. Counseled pt/family regarding: lab results, diagnosis, rad results Medical Desision Making - Diagnostic Testing Diagnostic test were ordered, analyzed, and reviewed by me: Yes Radiological Interpretation: Reviewed by me, Teleradiologist Report - Risk of complications The pt has a mod risk of morbidity or mortality based on: Need for prescription drug management - Departure Departure Disposition: Home Clinical Impression: Acetabular fracture Condition: Stable Critical Care Time: No Referrals: LUIS FELIPE ESTRELLA [Primary Care Provider] - Follow up/PCP as directed Additional Instructions: Ice pack to the area 3 times a day for the next 3 days. Use Tylenol and ibuprofen as discussed for pain control. Walk with your walker. Call your primary care provider on 07/17/2023 to make arrangements for referral to physical therapist. Prescriptions: Oxycodone HCl/Acetaminophen [Percocet 5-325 mg Tablet] 1 each PO Q8H PRN PRN #6 tablet MDD 3 PRN Reason: Moderate To Severe Pain
[2023-07-14 13:51] VITALS: RESP 19; TEMP 98
[2023-07-14] MEDS ORDERED: Zofran 4 MG/2 ML VIAL ONE (14:22)
[2023-07-14] MEDS ORDERED: Sodium Chloride 0.9% 1000 ML 1,000 ML ONE (14:22)
[2023-07-14] MEDS ORDERED: MORPHINE SULFATE 4 MG INJ ONE (14:22)
[2023-07-14] MEDS: Sodium Chloride 0.9% 1000 ML 1,000 ML IV SCH (14:25)
[2023-07-14] MEDS: Zofran 4 MG/2 ML VIAL IV ONE (14:25)
[2023-07-14] MEDS: MORPHINE SULFATE 4 MG INJ IV ONE (14:25)
--- NOTE | 2023-07-14 14:33 | XRAY ---
Indication: Pain following fall April 2023. Multiple contiguous axial images obtained through the left hip. Sagittal and coronal reformatted images obtained. Comparison: February 09, 2022 Superior acetabulum again demonstrates small degenerative spurring with new tiny nondisplaced hairline fracture. No obvious healing callus formation. Visualized surrounding soft tissues including pelvic contents are unremarkable. Impression: New tiny nondisplaced hairline fracture superior acetabulum bony spur.
--- NOTE | 2023-07-14 14:35 | XRAY ---
Indication: Pain following fall April 2023. Multiple contiguous axial images obtained through the pelvis with special attention to the osseous structures. Sagittal and coronal reformatted images obtained. Comparison: February 09, 2022 Stable degenerative changes both hips. Superior left acetabulum again demonstrates small degenerative spurring with new tiny nondisplaced hairline fracture. No obvious healing callus formation. Visualized surrounding soft tissues including pelvic contents are unremarkable. Impression: New tiny nondisplaced hairline fracture left superior acetabulum bony spur. Stable degenerative changes both hips.
[2023-07-14 14:37] LABS: Absolute Neutrophil Ct (ANC) 3.47 x10^3/uL (1.4-6.9); BASOPHIL % 0.3 % (0.0-0.4); Basophil (Absolute #) 0.02 x10^3/uL (0-0.4); Eosinophil % 0.9 % (0.00-5.0); Eosinophil (Absolute #) 0.06 x10^3/uL (0-0.5); Hematocrit 44.2 % (35-47); Hemoglobin 13.9 g/dL (12.0-16.0); IMMATURE GRAN # 0.02 x10^3u/L (0.00-0.03); IMMATURE GRAN % 0.3 % (0.00-0.4); Lymphocyte (Absolute #) 2.41 x10^3/uL (1.0-4.6); Lymphocytes % 37.8 % (24.0-44.0); Mean Cell Volume 89.8 fL (78-100); Mean Corpuscular Hemoglobin 28.3 pg (26-32); Mean Corpuscular Hgb Concent. 31.4 g/dL (32-36); Mean Platelet Volume 12.1 fL (7.5-11.0); Monocyte (Absolute #) 0.39 x10^3/uL (0.0-1.3); Monocytes % 6.1 % (0.0-12.0); Neutrophil % 54.6 % (36.0-66.0); Platelet Count 269 x10^3/uL (150-450); Red Blood Count 4.92 x10^6/uL (4.1-5.4); Red Cell Distribution Width 14.5 % (11.5-14.0); White Blood Count 6.4 x10^3/uL (4.0-10.5)
[2023-07-14 14:55] LABS: ALBUMIN 4.1 g/dL (3.5-5.0); ANION GAP 12.6 MEQ/L (5-15); BILIRUBIN,TOTAL 0.5 mg/dL (0.2-1.3); Creatinine 1 0.85 mg/dL (0.52-1.04); EST GLOMERULAR FILTRATION RATE 77.9 ML/MIN; Potassium 4.5 mmol/L (3.5-5.1); Total Protein 7.4 g/dL (6.3-8.2)
[2023-07-14] MEDS ORDERED: Ativan 2 MG/1 ML VIAL ONE (15:25)
[2023-07-14] MEDS: Ativan 2 MG/1 ML VIAL IV ONE (15:26)
[2023-07-14 15:27] VITALS: BP 107/72; PULSE 57; O2SAT 96
--- NOTE | 2023-07-14 16:43 | XRAY ---
Indication: Left hip pain following fall April 2023. Axial and coronal MRI both hips performed using T1, T2, and STIR sequences. T2 fat-sat sagittal images obtained through the left hip. Comparison: None Both hip articulation intact without abnormal effusion. Superior acetabulum demonstrates small focus minimal bone edema signal. Elsewhere no acute fracture, suspicious bony lesions, bony remodeling, or evidence for avascular necrosis. Visualized sinuses soft tissues and pelvic contents unremarkable. Impression: Minimal bone edema signal left superior acetabulum corresponding to tiny hairline fracture seen on same-day CT exam.
== END 2023-07-14 17:42 | disposition home or self-care (01) ==
LOC: ED 13:24
DX: S32.492A Other specified fracture of left acetabulum, initial encounter for closed fracture (principal); W19.XXXA Unspecified fall, initial encounter; Z79.891 Long term (current) use of opiate analgesic; Z79.899 Other long term (current) drug therapy; Z28.310 Unvaccinated for COVID-19
CPT/HCPCS: 36000; 36415; 72192; 73700; 73721; 80053; 85025; 93005; 96374; 96375; 99284; J2060; J2270; J2405